=== PATIENT | female | born 2000 | race Caucasian/White ===

== ENCOUNTER 2021-05-09 19:22 | Emergency (ER) | payer OTHER, SELFPAY ==
[2021-05-09 19:24] VITALS: BP 159/112; PULSE 132; RESP 18; TEMP 37.6; O2SAT 92; BMI 48.6
--- NOTE | 2021-05-09 19:55 | EX.ED.DYSGE1 ---
HPI History of Present Illness Chief Complaint: Cold Sx Informant: patient and parent Onset/Context/Timing Onset: Days (3-4) Context: Gradual Onset Timing: Continuous Quality: cough Location: upper airway, not chest Current Severity: Moderate Maximum Severity: Moderate Worsened by: nothing Relieved by: nothing Associated Symptoms Associated Symptoms: fevers, chills, myalgias, headaches Associated Symptoms ED: cough Narrative Narrative: Patient presenting with several days of of cough, fevers, chills, myalgias, some headaches, some nausea at one point but not right now, she was seen in urgent care and had a negative Covid test, presents for continued symptoms without any change. Patient states that she felt short of breath in the mornings when my mouth was dry. She denies any chest symptoms at all, even with exertion. Her father has Covid tested positive last week, is currently admitted with Covid pneumonitis. She lives in the same house as he does. She and the family members are all unvaccinated. PFSH PFSH Medical History no medical history no medical history Home Medications NK 05/09/21 [History Last Taken Unknown] Allergy/AdvReac Type Severity Reaction Status Date / Time amoxicillin Allergy Hives Verified 05/09/21 19:23 Surgical History no surgical history no surgical history Social History Smoking Status: Never smoker ROS [facility] ED Constitutional Constitutional ED: Reports body ache(s), chills, fatigue, fever(s), headache(s) and malaise Eyes Eyes: Denies change in vision or diplopia ENT ENT ED: Denies rhinorrhea or sore throat Cardiovascular Cardiovascular: Denies chest pain or palpitations Respiratory/Chest Respiratory/Chest: Reports as per HPI and cough; Denies dyspnea or dyspnea on exertion Gastrointestinal Gastrointestinal: Reports nausea; Denies abdominal pain, diarrhea or vomiting Genitourinary Genitourinary ED: Denies dysuria or hematuria Musculoskeletal Musculoskeletal: Denies back pain or neck pain Integumentary Denies abscess or rash Neurologic Neurologic: Reports headache(s); Denies paresthesias or weakness Psychiatric Psychiatric: Denies anxiety or suicidal thoughts EXAM Physical Exam Const Vital Signs: 05/09/21 19:24 05/09/21 20:05 Temperature 99.6 F H Temperature Source Temporal Pulse Rate 132 H Respiratory Rate 18 Respiratory Effort Normal Respiratory Pattern Normal Blood Pressure 159/112 H Blood Pressure Mean 127 Pulse Ox 92 Positive well nourished and well developed Constitutional Narrative: Well-appearing, no distress General Appearance ED: well developed and NAD HEENT Reports moist mucous membranes normocephalic and atraumatic Throat: posterior oropharynx normal Eyes PERRL and EOMs intact bilaterally Neck full ROM, no lymphadenopathy, supple and no meningeal signs Resp normal respiratory effort and clear to auscultation bilaterally Cardio regular rate, regular rhythm and no murmurs Cardio Narrative: mild tachycardia GI non-tender and non-distended Auscultation: normoactive bowel sounds Palpation: soft Back/Spine no CVA tenderness General Back: other FROM Extremity normal to inspection and no calf tenderness General Extremety ED: Negative for edema, pulses abnormal or tenderness General Extremity: Negative for edema or pulses abnormal Neuro oriented x3, CN's II-XII intact bilaterally and no sensory deficits noted Sensorium / Orientation: awake and alert Motor Exam: strength 5/5 throughout Skin no rashes or lesions noted and no wounds MDM MDM MDM Narrative Medical decision making narrative: Rapid Covid obtained here is positive which is consistent with the patient's syndrome. Her influenza is negative. Her oxygen saturations are good and she is stable for discharge home, she meets criteria for monoclonal antibody infusion therapy since she is oxygenating well, within 10 days of symptoms, and has a BMI of 49. We discussed reasons to return and given appropriate discharge instructions. Discharge Plan Triage Chief Complaint: Cold Sx ED Provider: Conner Mckinney Dx/Rx/DC Orders Clinical Impression: Acute COVID-19 Instructions: Coronavirus Disease 2019 (COVID-19): Caring for Yourself or Others, ED - COVID Monoclonal AB Infusion ... Prescriptions: No Action NK RF: 0 Primary Care Provider: Adrian Garay Referrals: Adrian Garay MD [Primary Care Provider] - As Needed Activity Restrictions/Additional Instructions: Try to get a home portable pulse oximeter and closely watch your oxygen levels periodically. If you stay below 90% for more than a minute or so, and/or you are feeling like your breathing is getting worse, return to the emergency department for further evaluation. You are a candidate for monoclonal antibody infusion therapy, see the attached instructions for more information. They will call you concerning when they want you to come to the clinic to get the infusion which is a one-time dose to help protect you from getting more ill and becoming hospitalized with life-threatening illness due to Covid given your risk for worsening. Disposition Disposition: Home, Self Care
[2021-05-09] MEDS: Acetaminophen 500 MG Tablet 1000 MG PO (20:05)
[2021-05-09 21:59] VITALS: PULSE 88; RESP 20; O2SAT 98
== END 2021-05-09 21:59 | disposition home or self-care (01) ==
PROVIDERS: Emergency Provider Emergency Medicine; PCP Pediatrics
DX: U07.1 COVID-19 (principal); E66.9 Obesity, unspecified; Z68.42 Body mass index [BMI] 45.0-49.9, adult
CPT/HCPCS: 87426; 87804; 99283

== ENCOUNTER 2024-08-29 23:40 | Emergency (ER) | payer MEDICAID, SELFPAY ==
[2024-08-29 23:41] VITALS: BP 183/104; PULSE 119; RESP 25; TEMP 36.1; O2SAT 100; BMI 53.4
[2024-08-29 23:46] VITALS: O2SAT 99
[2024-08-29 23:50] VITALS: BP 156/95; PULSE 96; RESP 22; O2SAT 98
--- NOTE | 2024-08-30 00:05 | RAD_ITS ---
PROCEDURE: CHEST PA AND LATERAL 08/30/2024 REASON FOR EXAM: PAIN TECHNIQUE: Frontal and lateral views of the chest. COMPARISON: None. FINDINGS: Mild elevation of the left hemidiaphragm secondary to gaseous dilatation of the splenic flexure of the colon. Minimal left basilar atelectatic pulmonary changes. The lungs are expanded. There is no demonstrated parenchymal abnormality. There is no demonstrated pleural abnormality. Normal heart and pericardium. Normal mediastinum and gildardo. Normal visualized pulmonary arteries. Normal visualized aortic arch and descending thoracic aorta. Normal visualized thoracic spine. Normal visualized ribs, clavicles, and shoulders. There is no demonstrated abnormality of the visualized soft tissue structures of the upper abdomen. RAD/Chest PA and Lateral IMPRESSION: No radiographic evidence of an acute abnormality. Reading [facility] [id number]
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
[2024-08-30 01:13] VITALS: BP 150/55; PULSE 95; RESP 20; TEMP 36.7; O2SAT 98
== END 2024-08-30 01:16 | disposition home or self-care (01) ==
PROVIDERS: Emergency Provider Emergency Medicine; Visit Provider Emergency Medicine
DX: S30.1XXA Contusion of abdominal wall, initial encounter (principal); E66.01 Morbid (severe) obesity due to excess calories; V43.52XA Car driver injured in collision with other type car in traffic accident, initial encounter; W22.10XA Striking against or struck by unspecified automobile airbag, initial encounter; Y92.410 Unspecified street and highway as the place of occurrence of the external cause; S20.20XA Contusion of thorax, unspecified, initial encounter
CPT/HCPCS: 71046; 99282

== ENCOUNTER 2024-08-31 01:46 | Emergency (ER) | payer MEDICAID, SELFPAY ==
[2024-08-31 01:47] VITALS: BP 156/90; PULSE 96; RESP 23; TEMP 36.6; O2SAT 94; BMI 54.0
[2024-08-31 02:46] VITALS: BP 137/94; PULSE 106; RESP 21; O2SAT 98
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
[2024-08-31 03:14] VITALS: BP 133/72; PULSE 102; RESP 22; TEMP 36.7; O2SAT 97
== END 2024-08-31 03:28 | disposition home or self-care (01) ==
PROVIDERS: Emergency Provider Emergency Medicine; Visit Provider Emergency Medicine
DX: R42 Dizziness and giddiness (principal); R51.9 Headache, unspecified; V43.52XA Car driver injured in collision with other type car in traffic accident, initial encounter; W22.10XA Striking against or struck by unspecified automobile airbag, initial encounter; Y92.410 Unspecified street and highway as the place of occurrence of the external cause
CPT/HCPCS: 99282

== ENCOUNTER 2024-09-03 07:27 | Emergency (ER) | payer MEDICAID, SELFPAY ==
[2024-09-03 07:28] VITALS: BP 160/106; PULSE 112; RESP 16; TEMP 36.6; O2SAT 97; BMI 44.8
--- NOTE | 2024-09-03 07:41 | CT_ITS ---
EXAM: BRAIN/HEAD WITHOUT CONTRAST CLINICAL HISTORY: 24 y/o F with HEADACHE, TROUBLE CONCENTRATING, PARESTHESIAS LEFT. COMPARISON: None. TECHNIQUE: Routine CT imaging of the head without IV contrast. Additional multiplanar reformats were obtained. Dose reduction techniques were used including intermediate exposure control (AEC),iterative reconstruction technique, and/or mA and/or KV dose adjustments based on patient's size. FINDINGS: No acute intracranial hemorrhage or herniation. The gilbert-white matter interfaces are maintained. No ventriculomegaly. The basal cisterns are patent. Opacification of the bilateral maxillary sinuses, [id number]. The mastoid air cells are well-aerated. The orbits are unremarkable. No acute calvarial fracture or scalp hematoma. CT/Brain/Head without Contrast IMPRESSION: No acute intracranial finding. Reading Location: [id number]
--- NOTE | 2024-09-03 07:56 | EDS_ITS ---
HPI History of Present Illness Chief Complaint: Head Injury Detail of Chief Complaint: Headaches, forgetfulness, trouble with sleep Informant: patient and parent Onset/Context/Timing Onset: Days Context: Sudden Onset Timing: Intermittent Quality: Detailed in HPI narrative Location: Not applicable Current Severity: Gone Maximum Severity: Moderate Worsened by: Uncertain Relieved by: Not applicable Associated Symptoms Associated Symptoms: HPI narrative Narrative Narrative: Patient is a 24-year-old female. She was seen on August [address] Mijares and Dr[address] Kevin Moscoso saw her on August 31. Chest x-ray was obtained on initial visit. The x-ray interpreted by radiologist and ER physician and no abnormality was noted. There was discussion why a CT of the head was not obtained. Patient has intermittent bilateral headache. Patient's had numbness predominantly left side. Patient reports trouble getting sleep, staying asleep and getting up in the morning. Normal. She has had problems with recalling things and forgetfulness. She also reports dropping things. Mother clarified that she drops things when she falls asleep which is abnormal for her. She has never been assessed for obstructive sleep apnea. (Patient's BMI is 44.8). Mother states she does snore loudly. Patient Nuys double vision, blurred vision loss of vision. She denies ringing in ears or decreased hearing. Denies trouble with speech or swallowing. Patient denies cardiac or respiratory symptoms. Patient denies GI symptoms. Patient has no urologic symptoms. She states she does have problems with balance. Prior similar symptoms: Yes Recent Illness/Hospitalization: Yes PFSH PFSH Home Medications ?Medication ?Instructions ?Recorded ?Last Taken ?Type methocarbamol 500 mg tablet 1,000 mg (2 x 500 mg) PO 4 X/DAY 08/30/24 Unknown Rx PRN Muscle pain/spasm #56 tabs Allergy/AdvReac Type Severity Reaction Status Date / Time amoxicillin Allergy Hives Verified 09/03/24 07:28 Social History (Updated 09/03/24 @ 07:[address] Raul Buenrostro MD) household members: family Smoking Status: Never smoker ROS ROS ED Constitutional Constitutional ED: Denies chills, fever(s), subjective or sweats Eyes Eyes: Denies blurry vision, change in vision or diplopia ENT ENT ED: Denies ear pain, rhinorrhea or sore throat Cardiovascular Cardiovascular: Denies chest pain or palpitations Gastrointestinal Gastrointestinal: Denies abdominal pain, nausea or vomiting Genitourinary Genitourinary ED: Denies dysuria, hematuria or urinary frequency Musculoskeletal Musculoskeletal: Denies arthralgias or myalgias Neurologic Neurologic: Reports paresthesias LUE and LLE Psychiatric Psychiatric: Denies anxiety or depression Hematologic/Lymphatic Hematologic/Lymphatic: Reports systems reviewed and no addt'l complaints, except as documented EXAM Physical Exam Const Vital Signs: 09/03/24 07:28 09/03/24 07:41 Temperature 97.8 F Temperature Source Temporal Pulse Rate 112 H Respiratory Rate 16 Respiratory Pattern Tachypnea Blood Pressure 160/106 H Blood Pressure Mean 124 Pulse Ox 97 Oxygen Delivery Method Room Air Positive well nourished and well developed Constitutional Narrative: BMI is 44.8. Patient's blood pressure is elevated 160/106. She is presently on no medication. She is on no herbal supplements. General Appearance ED: well developed and pallor HEENT Reports moist mucous membranes HEENT Narrative: Head is atraumatic normocephalic. Ears normal. Nares patent. Posterior pharynx is normal. No clinical signs of basilar skull fracture. Eyes PERRL and EOMs intact bilaterally Eyes Narrative: There is no nystagmus. General Eye ED: Negative for pale conjunctiva or scleral icterus Neck no lymphadenopathy, supple and no JVD Neck Narrative: There is no midline posterior neck discomfort. She has full active range of motion. Resp normal respiratory effort and clear to auscultation bilaterally Cardio regular rate, regular rhythm, S1 normal heart sound, S2 normal heart sound and no murmurs Back/Spine Back/Spine Narrative: Inspection of the back is normal. Extremity normal to inspection General Extremety ED: Negative for edema or tenderness General Extremity: Negative for edema Neuro oriented x3, CN's II-XII intact bilaterally and no sensory deficits noted Neuro Narrative: Gait was observed and normal. Able to walk on heels and toes. Tandem gait was normal. Romberg with eyes open and closed was negative. There is no clonus or Babinski sign noted. Sensorium / Orientation: alert Motor Exam: strength 5/5 throughout Psych mental status grossly normal Skin no rashes or lesions noted, no wounds and skin turgor normal General Skin Exam: pallor; Negative for jaundice MDM MDM MDM Narrative Medical decision making narrative: Since this is patient's third visit and symptoms have gotten worse and now reporting numbness on left side will obtain CT of the head to rule out intracranial bleed and specifically subdural hematoma or parenchymal contusion. If this is negative suspect that she has a concussion and she also in all likelihood has undiagnosed obstructive sleep apnea. History & Record Review Additional record(s) reviewed:: Prior ED visit and Prior labs (Chest x-ray was obtained and reviewed.) Radiography Diagnostic Testing: Clinical Impression(s) from Imaging Studies Brain CT 09/03/24 07:41 IMPRESSION: No acute intracranial finding. Reading Location: [facility] CT of the head reveals retention mucous cyst left maxillary sinus. There is no evidence of bleed. Awaiting formal read by radiologist Treatment and Re-Evaluation :: Patient and mother were informed of results. She will need to follow-up with Since she does not have a doctor Dr. Osman. She will need follow-up for elevated blood pressure and outpatient study for sleep apnea. Discharge Plan Triage Chief Complaint: Head Injury ED Provider: Raul Buenrostro Dx/Rx/DC Orders Clinical Impression: Post-concussion syndrome, Hypersomnolence, Elevated blood-pressure reading without diagnosis of hypertension, Sinus tachycardia Instructions: Coping with Concussion, ED Hypertension, To Be Confirmed, ED Sleep Apnea, Obstructive Prescriptions: No Action methocarbamol 500 mg tablet 1,000 mg PO 4X/DAY PRN (Reason: Muscle pain/spasm) Qty: 56 0RF Primary Care Provider: Care Physician,No Primary Referrals: Michelle Rodriguez MD [Med Staff - Grade School Teacher] - 1 Week Care Physician,No Primary [Primary Care Provider] - Activity Restrictions/Additional Instructions: Call Dr. Rodriguez's office for follow-up for blood pressure, outpatient study for sleep apnea and postconcussive syndrome Print Language: Palestinian Disposition Disposition: Home, Self Care
== END 2024-09-03 08:39 | disposition home or self-care (01) ==
PROVIDERS: Emergency Provider Emergency Medicine; Visit Provider Emergency Medicine
DX: R51.9 Headache, unspecified (principal); F07.81 Postconcussional syndrome; R00.0 Tachycardia, unspecified; R03.0 Elevated blood-pressure reading, without diagnosis of hypertension; G47.10 Hypersomnia, unspecified
CPT/HCPCS: 70450; 99282

== ENCOUNTER 2024-09-06 00:27 | Emergency (ER) | payer MEDICAID, SELFPAY ==
[2024-09-06 00:29] VITALS: BP 150/90; PULSE 98; RESP 26; TEMP 36.6; O2SAT 95; BMI 54.1
--- NOTE | 2024-09-06 01:13 | EDS_ITS ---
HPI History of Present Illness Chief Complaint: General Illness Informant: patient and parent Narrative Narrative: Patient is a 24-year-old female with no significant past medical history. She states over the last few days she is having bouts of apnea while she sleeps and then has noted excessive daytime sleepiness. She states she was seen in the ER recently for this and was told this is consistent with sleep apnea and she needs to have a sleep study in order to confirm this. Patient states that she does not have a family doctor and at this time cannot get into see 1 for an order for potential sleep study. Mother reports that she does witness the patient snort/snore herself awake and then fall back asleep which is consistent with sleep apnea. She states that as she cannot get into see a family doctor for the further testing she returns today to discuss if there is any type of treatment possible for her symptoms PFSH PFS Home Medications ?Medication ?Instructions ?Recorded ?Last Taken ?Type methocarbamol 500 mg tablet 1,000 mg (2 x 500 mg) PO 4 X/DAY 08/30/24 Unknown Rx PRN Muscle pain/spasm #56 tabs azelastine 137 mcg (0.1 %) nasal 2 spray intranasal BI D #30 mL 09/06/24 Unknown Rx spray Allergy/AdvReac Type Severity Reaction Status Date / Time amoxicillin Allergy Hives Verified 09/06/24 00:28 Social History (Updated 09/03/24 @ 07:[address] Raul Buenrostro MD) household members: family Smoking Status: Never smoker ROS ROS ED Constitutional Constitutional ED: Denies chills or fever(s) Eyes Eyes: Denies change in vision ENT ENT ED: Denies sore throat Cardiovascular Cardiovascular: Denies chest pain Respiratory/Chest Respiratory/Chest: Denies cough or dyspnea Gastrointestinal Gastrointestinal: Denies abdominal pain, diarrhea, nausea or vomiting Genitourinary Genitourinary ED: Denies dysuria Musculoskeletal Musculoskeletal: Denies myalgias or neck pain Integumentary Denies rash Neurologic Neurologic: Denies headache(s) Hematologic/Lymphatic Hematologic/Lymphatic: Denies easy bleeding or easy bruising Allergic/Immunologic Allergic/Immunologic ED: Denies mouth swelling or tongue swelling EXAM Physical Exam Const Vital Signs: 09/06/24 00:29 09/06/24 00:32 09/06/24 01:15 Temperature 97.9 F 98.0 F Temperature Source Oral Pulse Rate 98 78 Respiratory Rate 26 H 24 H Respiratory Effort Short of Breath Labored Respiratory Pattern Tachypnea Blood Pressure 150/90 H 138/75 H Blood Pressure Mean 110 96 Pulse Ox 95 100 Oxygen Delivery Method Room Air Positive well nourished, well developed and obese General Appearance ED: well developed; Negative for pallor Nutritional Appearance: obese HEENT Reports moist mucous membranes HEENT Narrative: No tongue or lip swelling no oral lesions no airway edema or compromise Patient does have +2 tonsillar hypertrophy bilaterally without erythema exudates trismus change in voice or difficulty with secretions Eyes PERRL and EOMs intact bilaterally General Eye ED: Negative for scleral icterus Neck supple and no JVD Neck Narrative: No subcutaneous emphysema noted Resp normal respiratory effort and clear to auscultation bilaterally Cardio regular rate and regular rhythm Extremity normal to inspection Neuro oriented x3, CN's II-XII intact bilaterally and no sensory deficits noted Sensorium / Orientation: alert Motor Exam: strength 5/5 throughout Psych mental status grossly normal Skin no rashes or lesions noted General Skin Exam: Negative for jaundice or pallor MDM MDM MDM Narrative Medical decision making narrative: Patient arrived to the ER hypertensive otherwise with stable vitals. History and exam is consistent with sleep apnea. This is most likely from pickwickian syndrome based on her morbid obesity and enlarged neck with tonsillar hypertrophy. There are no findings in the posterior pharynx to suggest peritonsillar abscess or strep throat. She is not hypoxic or in respiratory distress in the ER and therefore do not feel there is need for imaging studies. Patient and family were informed that I cannot perform a sleep study in the ER or provide an order form for it. They also were informed that I cannot provide a CPAP machine which would ultimately be the treatment of choice if the sleep study confirms YADI. At this time they will return home and continue to seek evaluation from an outpatient doctor and I have also informed him to seek treatment/evaluation by ENT based on her tonsil hypertrophy as a potential cause of her YADI. At this time hours she is not have signs of infection or respiratory distress she is not hypoxic or requiring supplemental oxygen and therefore is safe for discharge History & Record Review Discussion w/independent historian: Patient and Family Discharge Plan Triage Chief Complaint: General Illness ED Provider: Walter Mijares Dx/Rx/DC Orders Clinical Impression: Sleep apnea, Hypertrophy of tonsils, Morbid obesity Instructions: ED Sleep Apnea, Obstructive Prescriptions: New azelastine 137 mcg (0.1 %) spray,non-aerosol 2 spray intranasal BID Qty: 30 0RF Rx Instructions: administer into each nostril No Action methocarbamol 500 mg tablet 1,000 mg PO 4X/DAY PRN (Reason: Muscle pain/spasm) Qty: 56 0RF Primary Care Provider: Care Physician,No Primary Referrals: Bassem Kamara MD [Med Staff - Courtesy Staff] - (Tonsil hypertrophy with obstructive sleep apnea) Care Physician,No Primary [Primary Care Provider] - Activity Restrictions/Additional Instructions: Your history and exam is consistent with obstructive sleep apnea most likely due to enlarged tonsils. Please continue to try and obtain your sleep study to confirm sleep apnea and follow-up with ENT to discuss potential need for tonsillectomy. Sleep in a more upright position to help prevent symptoms and try salt water gargles throughout the day to potentially shrink the size of your enlarged tonsils. Return to the ER should you have any further concerns Print Language: Paraguayan Disposition Disposition: Home, Self Care Discharge Date/Time: 09/06/24 01:19
[2024-09-06 01:15] VITALS: BP 138/75; PULSE 78; RESP 24; TEMP 36.7; O2SAT 100
== END 2024-09-06 01:19 | disposition home or self-care (01) ==
PROVIDERS: Emergency Provider Emergency Medicine; Visit Provider Emergency Medicine
DX: G47.30 Sleep apnea, unspecified (principal); E66.01 Morbid (severe) obesity due to excess calories; J35.1 Hypertrophy of tonsils
CPT/HCPCS: 99282

== ENCOUNTER → 2024-09-12 | Outpatient (CLI) | payer MEDICAID, SELFPAY ==
[2024-09-12 16:50] LABS: Absolute Lymphocyte Count 4.39 X10^3/uL (0.83-4.51); Absolute Neutrophil Count 5.7 X10^3/uL (2.0-7.7); Basophil# 0.07 X10^3/uL; Basophil% 0.6 % (0-1); Eosinophils% 0.9 % (0-5); Hematocrit 41.7 % (37-47); Lymphocyte # 4.39 X10^3/ul (0.83-4.51); Mean Corp Hgb Conc 33.6 g/dL (32-36); Mean Corpuscular Volume 92.3 fL (81-99); Mean Platelet Vol. 10.9 fl (6.2-12.0); Monocyte# 1.03 X10^3/uL; Monocyte% 9.1 % (0-10); NRBC Flagged by Analyzer 0 % (0-5); Neutrophil # 5.66 X10^3/uL (2.7-7.7); Neutrophil % 50.2 % (47-70); POSITIVE MORPHOLOGY YES; Platelet Count 345 K/mm3 (150-450); RBC Distribution Width CV 12.4 % (11.6-14.6); RBC Distribution Width SD 41.6 fl (35.1-43.9); Red Blood Count 4.52 M/mm3 (4.2-5.4); White Blood Count 11.3 K/mm3 (4.4-11.0)
[2024-09-12 17:09] LABS: Differential Indicated SCAN CRITERIA MET
[2024-09-12 18:02] LABS: ALB/GLOB Ratio 1.1 RATIO (0.9-2.4); AST(SGOT) 24 U/L (<=31); Alanine Aminotransfer ALT/SGPT 27 U/L (<=34); Alkaline Phosphatase 86 U/L (35-104); Anion Gap 12 (5-15); BUN 12 mg/dL (4-19); BUN/Creat Ratio 20.2 RATIO (10-20); Calcium,Total 9.6 mg/dL (7.6-11.0); Carbon Dioxide 24.7 mmol/L (21.0-32.0); Chloride 101 mmol/L (98-108); Creatinine, Serum 0.59 mg/dL (0.70-1.20); EST Glomerular Filtration Rate 130 (>60); Globulin 3.8 g/dL (2.2-4.2); Glucose 91 mg/dL (70-99); Potassium 4.2 mmol/L (3.3-5.1); Protein, Total 7.8 g/dL (5.9-8.4); Sodium Level 137 mmol/L (133-145); Total Bilirubin 0.25 mg/dL (0.00-1.30)
[2024-09-12 18:16] LABS: Differential Comment SCANNED
[2024-09-12 18:17] LABS: Reactive Lymphocyte RARE
[2024-09-12 18:19] LABS: Cholesterol 149 mg/dL (<=190); High Density Lipoprotein 39 mg/dL; Low Density Lipoprotein Calc. 85 mg/dL; Triglycerides 127 mg/dL; Very Low Density Lipoprotein 25 mg/dL (5-40); cholesterol:hdl ratio screen 3.81
[2024-09-12 18:21] LABS: Vitamin B12 381 pg/mL (180-914); Vitamin D,25 Hydroxy 7.1 ng/mL (30-100)
== END | disposition home or self-care (01) ==
LOC: VSLAB 14:59
DX: R53.83 Other fatigue (principal); E55.9 Vitamin D deficiency, unspecified; Z13.220 Encounter for screening for lipoid disorders
CPT/HCPCS: 36415; 80053; 80061; 82306; 82607; 84443; 85025

== ENCOUNTER 2024-09-20 17:06 | Emergency (ER) | payer MEDICAID, SELFPAY ==
[2024-09-20 17:06] VITALS: BP 154/110; BP 161/105; PULSE 111; PULSE 114; RESP 16; RESP 20; TEMP 36.8; O2SAT 97; O2SAT 99; BMI 54.1
--- NOTE | 2024-09-20 17:30 | EDS_ITS ---
HPI History of Present Illness Chief Complaint: Shortness of Breath Detail of Chief Complaint: Shortness of breath Informant: patient and parent Narrative Narrative: Patient presents shortness of breath started 3 weeks ago. She [facility] and also scheduled to see ENT in 2 days. Intermittently has had a sore throat. She does have a cough. Complains of some exertional symptoms. [facility] thought she might have sleep apnea and they ordered outpatient sleep study. She cannot have her sleep study till October. She denies fever. She denies chest pain. She denies recent travel or surgery. PFSH PFS Medical History no medical history Home Medications ?Medication ?Instructions ?Recorded ?Last Taken ?Type azelastine 137 mcg (0.1 %) nasal 2 spray intranasal BI D #30 mL 09/06/24 Unknown Rx spray azithromycin 200 mg/5 mL oral 250 mg (6.25 mL) PO MICHAEL Y 4 days 09/20/24 Unknown Rx suspension (Zithromax) #25 mL ergocalciferol (vitamin D2) 1,250 1,250 mcg PO QWEEK 0 09/20/24 Unknown History mcg (50,000 unit) capsule Allergy/AdvReac Type Severity Reaction Status Date / Time amoxicillin Allergy Hives Verified 09/20/24 17:07 Social History (Updated 09/03/24 @ 07:[address] Raul Buenrostro MD) household members: family Smoking Status: Never smoker ROS ROS ED Review of Systems ROS Unobtainable: other Constitutional Constitutional ED: Reports lethargy; Denies chills, fever(s), sweats or weight loss Eyes Eyes: Denies blurry vision, change in vision or diplopia ENT ENT ED: Reports sore throat; Denies rhinorrhea Cardiovascular Cardiovascular: Denies chest pain, orthopnea or racing heartbeat Respiratory/Chest Respiratory/Chest: Reports cough, dyspnea and dyspnea on exertion; Denies orthopnea or sputum Gastrointestinal Gastrointestinal: Denies abdominal pain, diarrhea, nausea or vomiting Genitourinary Genitourinary ED: Denies dysuria, hematuria or urinary frequency Musculoskeletal Musculoskeletal: Denies arthralgias, back pain, myalgias or neck pain Integumentary Denies abscess, Abrasions or rash Neurologic Neurologic: Denies headache(s) or weakness Psychiatric Psychiatric: Denies anxiety, depression or suicidal thoughts Endocrine Endocrinology: Denies polydipsia, polyphagia or polyuria Hematologic/Lymphatic Hematologic/Lymphatic: Denies easy bleeding, easy bruising or lymphadenopathy Allergic/Immunologic Allergic/Immunologic ED: Denies mouth swelling, tongue swelling or urticaria EXAM Physical Exam Const Vital Signs: 09/20/24 17:06 09/20/24 17:06 09/20/24 17:13 Temperature 98.2 F Temperature Source Temporal Pulse Rate 111 H 114 H Respiratory Rate 16 20 H Respiratory Effort Normal Non-Labored Respiratory Depth Normal Respiratory Pattern Tachypnea Blood Pressure 154/110 H 161/105 H Blood Pressure Mean 124 123 Pulse Ox 99 97 Oxygen Delivery Method Room Air Room Air 09/20/24 19:06 09/20/24 21:00 Temperature Temperature Source Pulse Rate 101 H 106 H Respiratory Rate 18 18 Respiratory Effort Respiratory Depth Respiratory Pattern Blood Pressure 145/90 H 134/87 H Blood Pressure Mean 108 102 Pulse Ox 99 97 Oxygen Delivery Method Room Air Room Air Positive well nourished and well developed General Appearance ED: well developed and NAD HEENT Reports TM's clear and moist mucous membranes HEENT Narrative: Tonsils +2 without exudates or erythema. Uvula midline without trismus. No significant anterior adenopathy. normocephalic and atraumatic; Negative for trauma or tenderness Tympanic Membrane ED: Yes TM's clear Eyes PERRL and EOMs intact bilaterally General Eye ED: Negative for pale conjunctiva or scleral icterus Neck no lymphadenopathy, supple and no JVD General: Negative for tenderness Chest Wall inspection of chest normal and palpation of chest normal Chest: Negative for tenderness Resp normal respiratory effort and clear to auscultation bilaterally Effort and Inspection: Negative for respiratory distress or pain with movement Auscultation: Negative for rhonchi, wheezes or diminished lung sounds Cardio regular rate, regular rhythm, S1 normal heart sound, S2 normal heart sound and no murmurs Peripheral Pulses: pulses 2+ throughout GI normal to inspection, nondistended, normoactive bowel sounds, soft to palpation, non-tender, non-distended and no masses GI Narrative: Morbidly obese, abdomen nontender on exam. Back/Spine no CVA tenderness and no thoracic nor lumbar tenderness Extremity normal to inspection General Extremety ED: Negative for edema General Extremity: Negative for edema Neuro oriented x3, CN's II-XII intact bilaterally, no sensory deficits noted and gait normal Sensorium / Orientation: awake, alert, oriented to person, oriented to place and oriented to time Motor Exam: strength 5/5 throughout and strength abnormal Psych mental status grossly normal Skin no rashes or lesions noted and no wounds MDM MDM MDM Narrative Medical decision making narrative: Patient presents with difficulty breathing and complaining of sore throat. Clinically she looks well. Tonsils are +3 and uvula midline without trismus. No exudates noted. CBC with differential white count 13.1 with hemoglobin 13.8 plate count 281. Chemistries unremarkable. D-dimer was less than 0.27. TSH normal at 1.8. I did do a CT scan of the neck with IV contrast which read by radiology as heterogenous enhancement and enlargement of the palatine and adenoidal tonsils with findings concerning for acute tonsillitis. There was associated narrowing of the oropharyngeal airway and multiple bilateral jugulodigastric reactive lymph nodes. I will obtain a throat culture. Will start patient on Zithromax as she is pen allergic. She has an appointment to see ENT in 2 days and she is advised to keep that. Advised to return if difficulty swallowing or increased difficulty breathing or condition should worsen in any way. Lab Data Attestation: I reviewed the patient's lab results. Labs: Laboratory Results - last 24 hr 09/20/24 17:40 WBC 13.1 H RBC 4.50 Hgb 13.8 Hct 41.0 MCV 91.1 MCH 30.7 MCHC 33.7 RDW Std Deviation 41.1 RDW Coeff of Beltran 12.5 Plt Count 281 MPV 11.0 Immature Gran % (Auto) 0.400 Neut % (Auto) 64.6 Lymph % (Auto) 26.3 Hanson % (Auto) 7.6 Eos % (Auto) 0.6 Baso % (Auto) 0.5 Absolute Neuts (auto) 8.5 H Absolute Lymphs (auto) 3.44 Nucleated RBC % 0 D-Dimer Quant (PE/DVT) < 0.27 L Sodium 139 Potassium 3.8 Chloride 101 Carbon Dioxide 27.0 Anion Gap 11 BUN 13 Creatinine 0.70 Estim Creat Clear Calc 171.43 Est GFR (MDRD) Non-Af 125 BUN/Creatinine Ratio 18.5 Glucose 131 H Calcium 9.5 TSH 1.830 Radiography Diagnostic Testing: Clinical Impression(s) from Imaging Studies Soft Tissue Neck CT 09/20/24 20:50 IMPRESSION: Heterogeneous enhancement and enlargement of the palatine and adenoidal tonsils with findings concerning for acute tonsillitis. Associated narrowing of the oropharyngeal airway. Multiple bilateral jugulodigastric reactive lymph nodes. [facility] Triage Chief Complaint: Shortness of Breath ED Provider: Jeniffer Hernandez Dx/Rx/DC Orders Clinical Impression: Acute tonsillitis Instructions: Tonsillitis in Adults Prescriptions: New azithromycin [Zithromax] 200 mg/5 mL suspension for reconstitution 250 mg PO DAILY 4 Days Qty: 25 0RF Rx Instructions: 250 mg orally; No Action ergocalciferol (vitamin D2) 1,250 mcg (50,000 unit) capsule 1,250 mcg PO QWEEK azelastine 137 mcg (0.1 %) spray,non-aerosol 2 spray intranasal BID Qty: 30 0RF Rx Instructions: administer into each nostril Primary Care Provider: Pietro Ramos Referrals: Pietro Ramos, [employer] [Primary Care Provider] - Activity Restrictions/Additional Instructions: Keep your appointment with ENT in 2 days. Print Language: German Disposition Disposition: Home, Self Care
[2024-09-20 17:58] LABS: Absolute Lymphocyte Count 3.44 X10^3/uL (0.83-4.51); Absolute Neutrophil Count 8.5 X10^3/uL (2.0-7.7); Basophil# 0.06 X10^3/uL; Basophil% 0.5 % (0-1); Eosinophil# 0.08 X10^3/uL; Eosinophils% 0.6 % (0-5); Hemoglobin 13.8 g/dL (12.0-15.0); Lymphocyte # 3.44 X10^3/ul (0.83-4.51); Lymphocyte % 26.3 % (19-41); Mean Corp Hgb Conc 33.7 g/dL (32-36); Mean Corpuscular Hgb 30.7 pg (27.0-32.0); Mean Corpuscular Volume 91.1 fL (81-99); Monocyte% 7.6 % (0-10); NRBC Flagged by Analyzer 0 % (0-5); Neutrophil # 8.45 X10^3/uL (2.7-7.7); Neutrophil % 64.6 % (47-70); Platelet Count 281 K/mm3 (150-450); RBC Distribution Width CV 12.5 % (11.6-14.6); RBC Distribution Width SD 41.1 fl (35.1-43.9); White Blood Count 13.1 K/mm3 (4.4-11.0)
[2024-09-20 18:13] LABS: Anion Gap 11 (5-15); BUN 13 mg/dL (4-19); BUN/Creat Ratio 18.5 RATIO (10-20); Calcium,Total 9.5 mg/dL (7.6-11.0); Chloride 101 mmol/L (98-108); EST Glomerular Filtration Rate 125 (>60); Estimated Creatinine Clearance 171.43 ml/min (50-250); Glucose 131 mg/dL (70-99); Potassium 3.8 mmol/L (3.3-5.1); Sodium Level 139 mmol/L (133-145)
[2024-09-20 19:06] VITALS: BP 145/90; PULSE 101; RESP 18; O2SAT 99
[2024-09-20 19:55] LABS: D-Dimer Quantitative (DVT/PE) < 0.27 FEU/ug/m (0.27-0.49)
--- NOTE | 2024-09-20 20:50 | CT_ITS ---
PROCEDURE: SOFT TISSUE NECK WITH CONTRAST 09/20/2024 REASON FOR EXAM: THROAT PAIN, DIFFICULTY BREATHING TECHNIQUE: CT of the soft tissues of the neck from the orbits to the upper mediastinum with intravenous contrast. CONTRAST: Omnipaque 350 VOLUME: 100 mL Not Provided Gauge IV One or more dose reduction techniques were used (e.g., Automated exposure control, adjustment of the mA and/or kV according to patient size, use of iterative reconstruction technique). COMPARISON: None FINDINGS: Lymph nodes: Bilateral prominent-mildly enlarged level I and level II reactive lymph nodes.. Small nonspecific lymph nodes are scattered throughout the neck. Aerodigestive tract: Heterogenous enlargement and enhancement of the adenoidal and palatine tonsils (series 601 image [id number]), with phlegmonous change and multiple tonsilloliths, predominantly in the left palatine tonsil. No evidence of a tonsillar or peritonsillar abscess. There is associated mild narrowing of the oropharyngeal airway. Findings compatible with acute tonsillitis.. The nasal cavities, remainder of the naso-oropharynx, pharyngeal mucosal space, laryngeal structures and infraglottic trachea are within normal limits. Major salivary glands: Within normal limits. Thyroid gland: Within normal limits. Carotid space: Patent bilateral extracranial carotid and jugular systems. Intracranial contents: Imaged portions within normal limits. Paranasal sinuses, middle ears, mastoids: Mild paranasal sinus mucosal thickening.. Orbits: Within normal limits. Bones: No suspicious osseous lesions in the imaged calvarium, skull base and spine. Normal cervicothoracic alignment. No significant spondylotic changes. Temporomandibular joints are maintained. Lungs: Imaged lungs are clear. CT/Soft Tissue Neck WITH Contrast IMPRESSION: Heterogeneous enhancement and enlargement of the palatine and adenoidal tonsils with findings concerning for acute tonsillitis. Associated narrowing of the oropharyngeal airway. Multiple bilateral jugulodigastric reactive lymph nodes. Reading Location: [facility]
[2024-09-20 21:00] VITALS: BP 134/87; PULSE 106; RESP 18; O2SAT 97
[2024-09-20 22:46] VITALS: BP 143/96; PULSE 105; RESP 18; TEMP 36.8; O2SAT 96
[2024-09-20] MEDS: Azithromycin 200MG/5ML 500 MG PO (22:49)
== END 2024-09-20 22:51 | disposition home or self-care (01) ==
PROVIDERS: Emergency Provider Emergency Medicine; Visit Provider Emergency Medicine
DX: J35.3 Hypertrophy of tonsils with hypertrophy of adenoids (principal); R06.02 Shortness of breath
CPT/HCPCS: 70491; 80048; 84443; 85025; 85379; 87070; 87077; 87631; 99283; Q9967; A4216

== ENCOUNTER 2024-09-25 18:12 | Emergency (ER) | payer MEDICAID, SELFPAY ==
[2024-09-25 18:13] VITALS: BP 170/99; PULSE 102; RESP 19; TEMP 36.7; O2SAT 95; BMI 54.3
[2024-09-25 20:12] VITALS: BP 119/72; PULSE 88; O2SAT 97
--- NOTE | 2024-09-25 21:31 | EKG12_ITS ---
Test Reason : DYSRHYTHMIA Blood Pressure : */* mmHG Vent. Rate : 79 BPM Atrial Rate : 79 BPM P-R Int : 158 ms QRS Dur : 82 ms QT Int : 348 ms P-R-T Axes : 52 69 22 degrees QTcB Int : 399 ms Normal sinus rhythm with sinus arrhythmia Normal ECG Confirmed by Eduardo Perkins ([id number]), loan expeditor LAYO MARTINEZ ([id number]) on 09/26/2024 9:17:39 AM Referred By: Confirmed By: Eduardo Perkins
[2024-09-25 22:00] VITALS: BP 132/79; PULSE 90; RESP 18; O2SAT 97
--- NOTE | 2024-09-25 22:17 | EDS_ITS ---
HPI History of Present Illness Chief Complaint: General Illness Informant: patient and parent Narrative Narrative: Patient presents with several complaints. She has been having chest discomfort has been constant since yesterday that started right after swallowing some brought worst. She denies any dyspnea. Chest discomfort is substernal nonradiating, no palpitations, near-syncope or syncope or other systemic symptoms with this as far as the timing of the chest discomfort starting. However she has been having for the past month or so headaches, trouble staying asleep and therefore fatigue throughout the day every day. Seems like sometimes it is hard to move air through her throat. She saw otolaryngology for this, they said her tonsils are prominent but she was not a candidate for tonsillectomy at this point. She is scheduled to see her PCP tomorrow and hopefully be scheduled for a sleep study. She states she snores a lot. Also off balance with walking at times. PFS PFS Medical History no medical history Home Medications ?Medication ?Instructions ?Recorded ?Last Taken ?Type azelastine 137 mcg (0.1 %) nasal 2 spray intranasal BI D #30 mL 09/06/24 Unknown Rx spray azithromycin 200 mg/5 mL oral 250 mg (6.25 mL) PO MICHAEL Y 4 days 09/20/24 Unknown Rx suspension (Zithromax) #25 mL ergocalciferol (vitamin D2) 1,250 1,250 mcg PO QWEEK 0 09/20/24 Unknown History mcg (50,000 unit) capsule Allergy/AdvReac Type Severity Reaction Status Date / Time amoxicillin Allergy Hives Verified 09/25/24 18:16 Family History no significant family his Surgical History no surgical history Social History household members: family Smoking Status: Never smoker ROS ROS ED Constitutional Constitutional ED: Reports as per HPI, fatigue and snoring; Denies chills or fever(s) Eyes Eyes: Denies change in vision or diplopia ENT ENT ED: Denies rhinorrhea or sore throat Cardiovascular Cardiovascular: Reports chest pain; Denies palpitations Respiratory/Chest Respiratory/Chest: Denies cough or dyspnea Gastrointestinal Gastrointestinal: Denies abdominal pain, diarrhea, nausea or vomiting Genitourinary Genitourinary ED: Denies dysuria or hematuria Musculoskeletal Musculoskeletal: Denies back pain or neck pain Integumentary Denies abscess or rash Neurologic Neurologic: Reports headache(s); Denies paresthesias or weakness Psychiatric Psychiatric: Denies suicidal thoughts EXAM Physical Exam Const Vital Signs: 09/25/24 18:13 09/25/24 20:12 09/25/24 22:00 Temperature 98.1 F Temperature Source Oral Pulse Rate 102 H 88 90 Respiratory Rate 19 H 18 Blood Pressure 170/99 H 119/72 132/79 H Blood Pressure Mean 122 87 96 Pulse Ox 95 97 97 Oxygen Delivery Method Room Air Room Air Positive well nourished, well developed and obese General Appearance ED: well developed and NAD Nutritional Appearance: obese HEENT Reports moist mucous membranes HEENT Narrative: Mallampati 3. Tonsils symmetric. No stridor. No trismus. No tongue elevation. normocephalic and atraumatic Eyes PERRL and EOMs intact bilaterally Neck full ROM, no lymphadenopathy and supple Resp normal respiratory effort and clear to auscultation bilaterally Cardio regular rate, regular rhythm and no murmurs GI non-tender and non-distended Auscultation: normoactive bowel sounds Palpation: soft Back/Spine no CVA tenderness General Back: other FROM Extremity normal to inspection General Extremety ED: Negative for edema, pulses abnormal or tenderness General Extremity: Negative for edema or pulses abnormal Neuro oriented x3, CN's II-XII intact bilaterally and no sensory deficits noted Sensorium / Orientation: awake and alert Motor Exam: strength 5/5 throughout Psych mental status grossly normal Skin no rashes or lesions noted and no wounds MDM MDM MDM Narrative Medical decision making narrative: Patient states she was still having chest discomfort. Her EKG is normal, I offered her Mylanta but but by the time the nurses offered it to her she states the chest discomfort was gone so she declined it and on my reevaluation she is no longer having any chest discomfort. I do not think she needs any other further emergent workup. I reviewed her last ER visit her 2. She had a CT of the head verifying that there was nothing emergent/acute going on there. As I discussed with her, the symptoms could all be postconcussive, they could also be related to the fact that she has a significant sleep disturbance which is probably due to sleep apnea, she may or may not have a soft palate issue, but she already saw otolaryngology, she may be a candidate for CPAP, advised to follow-up with her doctor as scheduled tomorrow, they are comfortable with that plan. Of note, she was hypertensive when she was here at another visit, 170/99 in triage here but on my exam, she now is 119 systolic and on discharge 132/79. Rhythm Strip Rhythm Strip: Sinus Rhythm Rate: 78 Ectopy: None EKG Initial EKG: Attestation: I personally reviewed and interpreted this EKG as follows: Interpretation: Sinus Rhythm and No Acute Injury Pattern Comments: Nml axis & intervals; nml EKG Discharge Plan Triage Chief Complaint: General Illness ED Provider: Conner Mckinney Dx/Rx/DC Orders Clinical Impression: Fatigue, Disturbed sleep rhythm, Non-cardiac chest pain Instructions: ED Chest Pain, Noncardiac Prescriptions: No Action ergocalciferol (vitamin D2) 1,250 mcg (50,000 unit) capsule 1,250 mcg PO QWEEK azithromycin [Zithromax] 200 mg/5 mL suspension for reconstitution 250 mg PO DAILY 4 Days Qty: 25 0RF Rx Instructions: 250 mg orally; azelastine 137 mcg (0.1 %) spray,non-aerosol 2 spray intranasal BID Qty: 30 0RF Rx Instructions: administer into each nostril Primary Care Provider: Pietro Ramos Referrals: Pietro Ramos, FI[employer] MERCHANDISER-C [Primary Care Provider] - Keep Valerie appointment Print Language: Kazakh Disposition Disposition: Home, Self Care
== END 2024-09-25 22:21 | disposition home or self-care (01) ==
PROVIDERS: Emergency Provider Emergency Medicine; Visit Provider Emergency Medicine
DX: R07.89 Other chest pain (principal); R53.83 Other fatigue; G47.9 Sleep disorder, unspecified
CPT/HCPCS: 93005; 99282

== ENCOUNTER → 2024-10-03 | Outpatient (CLI) | payer MEDICAID, SELFPAY | END | disposition home or self-care (01) | LOC: SL 09:54 | DX: G47.10 Hypersomnia, unspecified (principal) | CPT/HCPCS: 95806 ==

== ENCOUNTER → 2024-11-06 | Outpatient (CLI) | payer MEDICAID, SELFPAY | END | disposition home or self-care (01) | LOC: SL 19:51 | PROVIDERS: Referring Provider Internal Medicine Sleep Medicine; Visit Provider Internal Medicine Sleep Medicine | DX: G47.10 Hypersomnia, unspecified (principal) | CPT/HCPCS: 95811 ==

== ENCOUNTER → 2024-11-29 | Outpatient (CLI) | payer MEDICAID, SELFPAY | END | disposition home or self-care (01) | LOC: SL 11:37 | PROVIDERS: Referring Provider Internal Medicine Sleep Medicine; Visit Provider Internal Medicine Sleep Medicine | DX: Z00.00 Encounter for general adult medical examination without abnormal findings (principal) ==

== ENCOUNTER 2025-02-11 04:11 | Emergency (ER) | payer MEDICAID, SELFPAY ==
--- OUTSIDE RECORDS SUMMARY | 2024-10-11 15:58 | XMS RPT_ITS ---
Author Name Auto Generated Organization [facility] Care Team Providers Care Associate Partner Name Role Phone SAMANTHA YAN Attending Unavailable SELF, SELF Referring Unavailable AVERY HERNANDEZ Primary Care Unavailable PROBLEMS DATE TYPE CONDITION / CODE [facility] Admitting diagnosis Obstructive Sleep Apnea / 264() SAMANTHA YAN Active [facility] PROCEDURES No Procedure Records Found RESULTS ALLERGIES No Allergies Records Found ENCOUNTERS ADMIT/DISCHARGE ACCOUNT NUMBER ADMITTING ENCOUNTER CLASS LOC ATION SOURCE [facility]/11/2024 [id number] [facility] PAYERS ENCOUNTER GUARANTOR PAYER SUBSCRIBER SOURCE 10/11/2024 HILLARY ANGUIANOB: [id number] [place] [phone]: () Primary [facility]: [id number] ve Date:[id number] Name:TRINA ANGUIANOB: [id number] [address]
[2025-02-11 04:12] VITALS: BP 135/94; PULSE 104; RESP 22; TEMP 36.6; O2SAT 98; BMI 59.8
[2025-02-11 04:15] VITALS: BP 135/94; PULSE 96; RESP 22; TEMP 36.6; O2SAT 98
--- NOTE | 2025-02-11 05:09 | EX.ED.VIS.UR ---
HPI HPI - URI History of Present Illness Chief Complaint: Shortness of Breath Informant: patient and parent Narrative Narrative: 24-year-old female with a history of sleep apnea has been having more dyspnea than usual due to nasal congestion. She has a nonproductive cough, no fevers or chills, but she does have a sore throat. Clear rhinorrhea. This has been going on for 1-2 weeks. Presents between 3520-7068 AM because we need to fix this according to mother. Patient states she stopped using her CPAP because it was uncomfortable with all the nasal congestion, and it gave her a lot of rhinorrhea with it being all over her in the morning, less sleep, and then more drowsy during the day as a result. She denies having any chest symptoms. No sputum production when she coughs. She has a history of seasonal allergies but does not take anything for it. She also has taken no [id number] cold or flu medications for any of this. ROS ROS ED Constitutional Constitutional ED: Denies chills or fever(s) ENT ENT ED: Reports nasal congestion, rhinorrhea and sore throat; Denies ear pain Cardiovascular Cardiovascular: Denies chest pain or palpitations Respiratory/Chest Respiratory/Chest: Reports cough and dyspnea on exertion; Denies chest congestion, excessive phlegm production, hemoptysis or sputum Gastrointestinal Gastrointestinal: Denies abdominal pain, diarrhea, nausea or vomiting Genitourinary Genitourinary ED: Denies dysuria or hematuria Musculoskeletal Musculoskeletal: Denies myalgias or neck pain Integumentary Denies abscess or rash Neurologic Neurologic: Denies headache(s), paresthesias or weakness Psychiatric Psychiatric: Denies depression or suicidal thoughts Endocrine Endocrinology: Denies polydipsia or polyuria [facility] Medical History (Updated 02/11/25 @ 06:[address] Conner Mckinney MD) YADI (obstructive sleep apnea) Home Medications ?Medication ?Instructions ?Recorded ?Last Taken ?Type NK 02/11/25 Unknown History Allergy/AdvReac Type Severity Reaction Status Date / Time amoxicillin Allergy Hives Verified 02/11/25 04:12 Social History household members: family Smoking Status: Never smoker EXAM Physical Exam Const Vital Signs: 02/11/25 04:12 02/11/25 04:12 02/11/25 04:15 Temperature 97.8 F 97.8 F Temperature Source Oral Oral Pulse Rate 104 H 96 Respiratory Rate 22 H 22 H Respiratory Effort Short of Breath Respiratory Depth Shallow Respiratory Pattern Tachypnea Blood Pressure 135/94 H 135/94 H Blood Pressure Mean 107 107 Pulse Ox 98 98 Oxygen Delivery Method Room Air Room Air Room Air Positive well nourished, well developed and obese Constitutional Narrative: No respiratory distress. Audible nasal congestion. General Appearance ED: well developed and NAD Nutritional Appearance: obese HEENT Reports moist mucous membranes HEENT Narrative: No purulent nasal discharge. normocephalic and atraumatic Face and Sinus: Negative for sinus tenderness Throat: Negative for posterior oropharynx abnormal Eyes PERRL and EOMs intact bilaterally Neck no lymphadenopathy, supple and no meningeal signs Resp normal respiratory effort and clear to auscultation bilaterally Cardio no murmurs Rate: regular rate Rhythm: regular rhythm GI non-tender and non-distended Auscultation: normoactive bowel sounds Palpation: soft Extremity normal to inspection and full ROM Neuro oriented x3, CN's II-XII intact bilaterally and no sensory deficits noted Sensorium / Orientation: alert Motor Exam: strength 5/5 throughout Psych mental status grossly normal Skin Lesions: no lesions Rashes: no rashes MDM MDM MDM Narrative Medical decision making narrative: Patient is not hypoxic and has clear lungs and no chest symptoms. Therefore I do not think she needs a chest x-ray as this is not likely to be pneumonia. Her symptoms and exam are all consistent with this being upper airway-related congestion and rhinorrhea causing her symptoms. She is in agreement when I suggest that. I think doing a COVID/influenza/RSV swab is reasonable, and given the possibility of some swelling in her posterior pharynx, I think reasonable to give her a dose of Decadron especially since she is not a diabetic. Originally when we discussed this she was amenable to it, but then she changed her mind and decided to refuse the Decadron. The swab is negative. She is wondering if this could be allergies, certainly it could be or a viral infection. I discussed the logic behind the steroids and she understands but declines, and states she would rather use [id number] Zyrtec and NyQuil or equivalent and use her CPAP as able. Discharge Plan Triage Chief Complaint: Shortness of Breath ED Provider: Faye,Conner Dx/Rx/DC Orders Clinical Impression: Nasal congestion with rhinorrhea, Difficulty with CPAP use Instructions: ED Allergic Rhinitis, ED URI, Viral, No Abx (Adult) Prescriptions: No Action NK Primary Care Provider: Anne Marie Munoz Referrals: Anne Marie Munoz, HARDWARE ASSEMBLER-C [Primary Care Provider, [facility]] - 3-5 Days if not improving Activity Restrictions/Additional Instructions: Try using NyQuil or [id number] equivalent cold/flu medication at night before bed to help with the runny nose, and consider using Zyrtec or Aster or Claritin as these will be more likely to help if your nasal congestion is due to allergy. Print Language: Maltese Disposition Disposition: Home, Self Care
[2025-02-11 06:32] VITALS: BP 151/106; PULSE 82; RESP 20; TEMP 36.6; O2SAT 94
== END 2025-02-11 06:33 | disposition home or self-care (01) ==
PROVIDERS: Emergency Provider Emergency Medicine; PCP Nurse Practitioner Family; Visit Provider Emergency Medicine
DX: R09.81 Nasal congestion (principal); R06.02 Shortness of breath; Z99.89 Dependence on other enabling machines and devices; G47.33 Obstructive sleep apnea (adult) (pediatric); J34.89 Other specified disorders of nose and nasal sinuses
CPT/HCPCS: 87631; 99282

== ENCOUNTER → 2025-02-14 | Outpatient (CLI) | payer MEDICAID, SELFPAY | END | disposition home or self-care (01) | PROVIDERS: PCP Nurse Practitioner Family; Referring Provider Nurse Practitioner Family; Visit Provider Nurse Practitioner Family | DX: R05.9 Cough, unspecified (principal) | CPT/HCPCS: 71046 ==

== ENCOUNTER 2025-02-23 15:31 | Emergency (ER) | payer MEDICAID, SELFPAY ==
[2025-02-23 15:31] VITALS: TEMP 36.5
[2025-02-23 15:45] VITALS: BMI 58.8
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
[2025-02-23] MEDS: 0.9% Normal Saline (1000mL) 1,000 ML 999 ML IV (16:12)
[2025-02-23 16:31] VITALS: BP 116/74; PULSE 80; RESP 14; TEMP 36.6; O2SAT 99
[2025-02-23 16:45] LABS: AST(SGOT) 20 U/L (<=31); Alanine Aminotransfer ALT/SGPT 19 U/L (<=34); Albumin, Serum 3.8 g/dL (3.5-5.0); Alkaline Phosphatase 82 U/L (35-104); Anion Gap 10 (5-15); BUN 10 mg/dL (4-19); BUN/Creat Ratio 15.3 RATIO (10-20); Bilirubin, Direct 0.14 mg/dL (0.00-0.30); Calcium,Total 9.6 mg/dL (7.6-11.0); Carbon Dioxide 29.0 mmol/L (21.0-32.0); Chloride 100 mmol/L (98-108); Estimated Creatinine Clearance 187.39 ml/min (50-250); Globulin 4.0 g/dL (2.2-4.2); Glucose 144 mg/dL (70-99); Hematocrit 39.7 % (37-47); Hemoglobin 13.2 g/dL (12.0-15.0); Immature Granulocytes Count 0.030 X10^3/uL (0.0-0.0); Mean Corp Hgb Conc 33.2 g/dL (32-36); Mean Corpuscular Volume 93.6 fL (81-99); Mean Platelet Vol. 12.9 fl (6.2-12.0); NRBC Flagged by Analyzer 0 % (0-5); Platelet Count 260 K/mm3 (150-450); Potassium 4.0 mmol/L (3.3-5.1); RBC Distribution Width CV 12.3 % (11.6-14.6); RBC Distribution Width SD 42.4 fl (35.1-43.9); Red Blood Count 4.24 M/mm3 (4.2-5.4); White Blood Count 9.9 K/mm3 (4.4-11.0)
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
[2025-02-23 17:02] LABS: Prothrombin Time (Protime)PT. 14.0 SECONDS (11.7-14.9)
[2025-02-23 17:03] LABS: Partial Thromboplast Time 28.8 Seconds (24.1-36.2)
[2025-02-23 17:10] LABS: Internal QC Validated? YES +Cl - CLEAR BKGD; Pregnancy, Serum, hCG Quali. NEGATIVE Negative
[2025-02-23 17:11] LABS: Record Kit Lot#, Serum Preg. 980607
[2025-02-23 17:24] VITALS: BP 118/72; PULSE 82; RESP 12; O2SAT 99
[2025-02-23 17:26] LABS: Mucous, Urine 0 SEEN /hpf (<or=2+)
[2025-02-23 18:00] VITALS: BP 121/77; PULSE 79; RESP 14; O2SAT 99
[2025-02-23 18:00] LABS: Color, Urine Yellow (Yellow); Glucose, Dipstick Normal (Normal); Ketone-Dipstick Negative (Negative); Leukocyte Esterase-Dipstick Negative /ul (Negative); Nitrite-Dipstick Negative (Negative); Occult Blood-Urine 250 /ul (Negative); Protein-Dipstick 30 mg/dl (Negative); Specific Gravity, Urine 1.010 (1.002-1.030); Urine Bilirubin Dipstick Negative (Negative)
[2025-02-23 18:20] VITALS: BP 121/77; PULSE 79; RESP 14; TEMP 36.8; O2SAT 99
[2025-02-23 20:46] LABS: Red Blood Cells-Urine 10-25 SEEN /hpf (0-5); Squamous Epithelial Cells - UA 0-5 SEEN /hpf (5-10)
== END 2025-02-23 18:30 | disposition home or self-care (01) ==
PROVIDERS: Emergency Provider Emergency Medicine; PCP Nurse Practitioner Family; Visit Provider Emergency Medicine
DX: G47.33 Obstructive sleep apnea (adult) (pediatric) (principal); V48.5XXA Car driver injured in noncollision transport accident in traffic accident, initial encounter; Y92.410 Unspecified street and highway as the place of occurrence of the external cause
CPT/HCPCS: 70450; 71260; 72125; 74177; 80048; 80076; 81001; 84703; 85025; 85610; 85730; 93005; 96360; 96361; 99285; Q9967; A4216

== ENCOUNTER → 2025-03-28 | Outpatient (CLI) | payer MEDICAID, SELFPAY ==
--- OUTSIDE RECORDS SUMMARY | 2025-03-28 06:51 | XMS RPT_ITS | CCD ---
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 decided to refuse the Decadron. The swab is negative. She (more content not included)... Normal [facility] Influenza virus A and B and SARS-CoV-2 (COVID-19) and Respiratory syncytial virus RNAOrdered By: Conner Mckinney on 02-11-2025 SARS-CoV-2 (COVID-19) RNA ROYCE+probe Ql (Unsp spec) [facility] M100.678on 02-11-2025 M100.678 SARS-CoV-2 (COVID 19 ) Negative INFLUENZA A Negative INFLUENZA B Negative RSV PCR Negative Normal [facility] Comment on above: Performed By: #### M 100.678 #### [facility] [address] [place], [place], [id number] Culture, Throaton 09-27-2024 CUT No beta-hemolytic streptococcus isolated. Bacteria Throat Cult Bacteria Throat Cult Bacteria Throat Cult Staphylococcus aureus Amount Growth 2+ Staphylococcus aureus: REACTION cefOXitin Susc Islt NEG Doxycycline Islt CHRISTOPHER <=0.5 S Clindamycin Islt CHRISTOPHER 0.25 S Clindamycin.induced Susc Islt NEG Erythromycin Islt CHRISTOPHER <=0.25 S Gentamicin Islt CHRISTOPHER <=0.5 S Linezolid Islt CHRISTOPHER 2 S Moxifloxacin Islt CHRISTOPHER <=0.25 S Oxacillin Susc Islt 0.5 S Tetracycline Islt CHRISTOPHER <=1 S TMP SMX Islt CHRISTOPHER <=10 S Vancomycin Islt CHRISTOPHER 1 S Normal [facility] Comment on above: Performed By: #### M 100.1000 ####[facility] [id number] [place], [place], [address] 12 Lead EKGon 09-25-2024 12 Lead EKG [facility] Services [address] [place] [address] 12 Lead EKG 09/25/24 2150 MR#: [id number] Acct: [id number] Name: HILLARY VOSS Rep #: [id number] : 2000 24 From: Eduardo Perkins MD Attending Dr: Status: DEP ER Ordering Dr: Conner Mckinney MD Date: 09/25/24 Location: ED Sex: F C Admitted: Test Reason : DYSRHYTHMIA Blood Pressure : */* mmHG Vent. Rate : 79 BPM Atrial Rate : 79 BPM P-R Int : 158 ms QRS Dur : 82 ms QT Int : 348 ms P-R-T Axes : 52 69 22 degrees QTcB Int : 399 ms Normal sinus rhythm with sinus arrhythmia Normal ECG Confirmed by Eduardo Perkins ([id number]), editor newspaper LAYO MARTINEZ ([id number]) on 09/26/2024 9:17:39 AM Referred By: Confirmed By: Eduardo Perkins 09/26/24 0917 Date Eduardo Perkins MD CC: Dr. Conner Mckinney MD; Pietro [employer] Rachel Signed Normal [facility] Emergency Department Summary on 09-25-2024 Emergency Department Summary [facility] Medical Records Department [address] [place] [address] Emergency Department Summary 09/25/24 MR#: [id number] Acct: [id number] Name: HILLARY VOSS Rep #: [id number] : 2000 24 From: Conner Mckinney MD PCP: Pietro Ramos [employer] Status:DEP ER Location: ED HPI History of Present Illness Chief Complaint: General Illness Informant: patient and parent Narrative Narrative: Patient presents with several complaints. She has been having chest discomfort has been constant since yesterday that started right after swallowing some brought worst. She denies any dyspnea. Chest discomfort is substernal nonradiating, no palpitations, near-syncope or syncope or other systemic symptoms with this as far as the timing of the chest discomfort starting. However she has been having for the past month or so headaches, trouble staying asleep and therefore fatigue throughout the day every day. Seems like sometimes it is hard to move air through her throat. She saw otolaryngology for this, they said her tonsils are prominent but she was not a candidate for tonsillectomy at this point. She is scheduled to see her PCP tomorrow and hopefully be scheduled for a sleep study. She states she snores a lot. Also off balance with walking at times. [facility] Medical History no medical history Home Medications ???Medication ???Instructions ???Recorded ???Last Taken ???Type azelastine 137 mcg (0.1 %) nasal 2 spray intranasal BID #30 mL 08/16 08/08 Unknown Rx spray azithromycin 200 mg/5 mL oral 250 mg (6.25 mL) PO DAILY 4 days 0 09/20/24 Unknown Rx suspension (Zithromax) #25 mL ergocalciferol (vitamin D2) 1,250 1,250 mcg PO QWEEK 09/20/24 Unkno wn History mcg (50,000 unit) capsule Allergy/AdvReac Type Severity Reaction Status Date / Time amoxicillin Allergy Hives Verified 09/25/24 18:16 Family History no significant family his Surgical History no surgical history Social History household members: family Smoking Status: Never smoker ROS ROS ED Constitutional Constitutional ED: Reports as per HPI, fatigue and snoring; Denies chills or fever(s) Eyes Eyes: Denies change in vision or diplopia ENT ENT ED: Denies rhinorrhea or sore throat Cardiovascular Cardiovascular: Reports chest pain; Denies palpitations Respiratory/Chest Respiratory/Chest: Denies cough or dyspnea Gastrointestinal Gastrointestinal: Denies abdominal pain, diarrhea, nausea or vomiting Genitourinary Genitourinary ED: Denies dysuria or hematuria Musculoskeletal Musculoskeletal: Denies back pain or neck pain Integumentary Denies abscess or rash Neurologic Neurologic: Reports headache(s); Denies paresthesias or weakness Psychiatric Psychiatric: Denies suicidal thoughts EXAM Physical Exam Const Vital Signs: 09/25/24 18:13 09/25/24 20:12 09/25/24 22:00 Temperature 98.1 F Temperature Source Oral Pulse Rate 102 H 88 90 Respiratory Rate 19 H 18 Blood Pressure 170/99 H 119/72 132/79 H Blood Pressure Mean 122 87 96 Pulse Ox 95 97 97 Oxygen Delivery Method Room Air Room Air Positive well nourished, well developed and obese General Appearance ED: well developed and NAD Nutritional Appearance: obese HEENT Reports moist mucous membranes HEENT Narrative: Mallampati 3. Tonsils symmetric. No stridor. No trismus. No tongue elevation. normocephalic and atraumatic Eyes PERRL and EOMs intact bilaterally Neck full ROM, no lymphadenopathy and supple Resp normal respiratory effort and clear to auscultation bilaterally Cardio regular rate, regular rhythm and no murmurs GI non-tender and non-distended Auscultation: normoactive bowel sounds Palpation: soft Back/Spine no CVA tenderness General Back: other FROM Extremity normal to inspection General Extremety ED: Negative for edema, pulses abnormal or tenderness General Extremity: Negative for edema or pulses abnormal Neuro oriented x3, CN's II-XII intact bilaterally and no sensory deficits noted Sensorium / Orientation: awake and alert Motor Exam: strength 5/5 throughout Psych mental status grossly normal Skin no rashes or lesions noted and no wounds MDM MDM MDM Narrative Medical decision making narrative: Patient states she was still having chest discomfort. Her EKG is normal, I offered her Mylanta but but by the time the nurses offered it to her she states the chest discomfort was gone so she declined it and on my reevaluation she is no longer having any chest discomfort. I do not think she needs any other further emergent workup. I reviewed her last ER visit her 2. She had a CT of the head verifying that there was nothing emergent/acute going on there. As I discussed with her, th (more content not included)... Normal [facility] Absolute lymphocyte countOrd ered By: Jeniffer Hernandez on 09-20-2024 Lymphocytes Auto (Unsp spec) [#/Vol] 3.44 10*3/uL 0.83-4.51 [facility] Absolute neutrophil countOrd ered By: Jeniffer Hernandez on 09-20-2024 Neutrophils (Bld) [#/Vol] 8.5 10*3/uL High 2.0-7.7 [facility] Anion gap in Serum or Plasma Ordered By: Jeniffer Hernandez on 09-20-2024 Anion gap [Moles/Vol] 11 mmol/L 5-15 [facility] Automated lymphocyte count a s percentage of total leukocytesOrdered By: Jeniffer Hernandez on 09-20-2024 Lymphocytes/100 WBC Auto (Unsp spec) 26.3 % 19-41 [facility] BUN/creatinine ratioOrdered By: Jeniffer Hernandez on 09-20-2024 Urea nitrogen/Creatinine [Mass ratio] 18.5 mg/mg 10- [facility] Basic Metabolic Profile (BMP )on 09-20-2024 BUN/CRE 18.5 RATIO Normal - [facility] Comment on above: Performed By: #### L 500.2500, L100.0100, L300.8000, L501.9520 #### [facility] [address] [place], [address] Calcium [Mass/Vol] 9.5 mg/dL Normal 7.6-11.[address] [facility] Comment on above: Performed By: #### L 500.2500, L100.0100, L300.8000, L501.9520 #### [facility] [address] [place], [address] Chloride [Moles/Vol] 101 mmol/L Normal 98-108 [facility] Comment on above: Performed By: #### L 500.2500, L100.0100, L300.8000, L501.9520 #### [facility] [address] [place], [address] CO2 [Moles/Vol] 27.0 mmol/L Normal 21.0-32.0 [facility] Comment on above: Performed By: #### L 500.2500, L100.0100, L300.8000, L501.9520 #### [facility] [address] [place], [address] Creatinine [Mass/Vol] 0.70 mg/dL Normal 0.70-1.20 [facility] Comment on above: Performed By: #### L 500.2500, L100.0100, L300.8000, L501.9520 #### [facility] [address] [place], [address] ECRCL 171.43 ml/min Normal 50-250 [facility] Comment on above: Performed By: #### L 500.2500, L100.0100, L300.8000, L501.9520 #### [facility] [address] [place], [address] GAP 11 Normal 5-15 [facility] Comment on above: Performed By: #### L 500.2500, L100.0100, L300.8000, L501.9520 #### [facility] [address] [place], [address] GFR/1.73 sq M.predicted among non-blacks MDRD (S/P/Bld) [Vol rate/Area] 125 mL/min/{1.73_m2} Normal >60 [facility] Comment on above: Result Comment: mL/m in/1.73m2 CKD-EPI Creatinine Equation (2020) Performed By: #### L 500.2500, L100.0100, L300.8000, L501.9520 #### [facility] [address] [place], [address] Glucose [Mass/Vol] 131 mg/dL High 70-[address] [facility] Comment on above: Performed By: #### L 500.2500, L100.0100, L300.8000, L501.9520 #### [facility] [address] [place], [address] Potassium [Moles/Vol] 3.8 mmol/L Normal 3.3-5.1 [facility] Comment on above: Performed By: #### L 500.2500, L100.0100, L300.8000, L501.9520 #### [facility] [address] [place], [address] Sodium [Moles/Vol] 139 mmol/L Normal 133-[address] [facility] Comment on above: Performed By: #### L 500.2500, L100.0100, L300.8000, L501.9520 #### [facility] [address] [place], [address] Urea nitrogen [Mass/Vol] 13 mg/dL Normal 4-19 [facility] Comment on above: Performed By: #### L 500.2500, L100.0100, L300.8000, L501.9520 #### [facility] [address] [place], [address] Basophil percentageOrdered B y: Remus Ungur on 09-20-2024 Basophils/100 WBC (Bld) 0.5 % 0-1 [facility] CBC W/Diff, Automatedon -2024 Absolute Lymph 3.44 X10 3/uL Normal 0.83-4.51 [facility] Comment on above: Performed By: #### L 500.2500, L100.0100, L300.8000, L501.9520 #### [facility] [address] [place], [address] Absolute Neut 8.5 X10 3/uL High 2.0-7.7 [facility] Comment on above: Performed By: #### L 500.2500, L100.0100, L300.8000, L501.9520 #### [facility] [address] [place], [address] Basophils/100 WBC (Bld) 0.5 % Normal 0-1 [facility] Comment on above: Performed By: #### L 500.2500, L100.0100, L300.8000, L501.9520 #### [facility] [address] [place], [address] Eosinophils/100 WBC (Bld) 0.6 % Normal 0-5 [facility] Comment on above: Performed By: #### L 500.2500, L100.0100, L300.8000, L501.9520 #### [facility] [address] [place], [address] Erythrocyte distribution width (RBC) [Ratio] 12.5 % Normal 11.6-14.6 [facility] Comment on above: Performed By: #### L 500.2500, L100.0100, L300.8000, L501.9520 #### [facility] [address] [place], [address] Hematocrit (Bld) [Volume fraction] 41.0 % Normal 37-47 [facility] Comment on above: Performed By: #### L 500.2500, L100.0100, L300.8000, L501.9520 #### [facility] [address] [place], [address] Hemoglobin (Bld) [Mass/Vol] 13.8 g/dL Normal 12.0-15.0 [facility] Comment on above: Performed By: #### L 500.2500, L100.0100, L300.8000, L501.9520 #### [facility] [address] [place], [address] IG% 0.400 Normal 0.0-0.9 [facility] Comment on above: Result Comment: IG% - Immature Granulocytes (promyelocytes, myelocytes and metamyelocytes) > 1% indicates that a LEFT SHIFT is Present. Performed By: #### L 500.2500, L100.0100, L300.8000, L501.9520 #### [facility] [address] [place], [address] Lymphocytes/100 WBC (Bld) 26.3 % Normal 19-41 [facility] Comment on above: Performed By: #### L 500.2500, L100.0100, L300.8000, L501.9520 #### [facility] [address] [place], [address] MCH (RBC) [Entitic mass] 30.7 pg Normal 27.0-32.0 [facility] Comment on above: Performed By: #### L 500.2500, L100.0100, L300.8000, L501.9520 #### [facility] [address] [place], [address] MCHC (RBC) [Mass/Vol] 33.7 g/dL Normal 32-36 [facility] Comment on above: Performed By: #### L 500.2500, L100.0100, L300.8000, L501.9520 #### [facility] [address] [place], [address] MCV (RBC) [Entitic vol] 91.1 fL Normal 81-99 [facility] Comment on above: Performed By: #### L 500.2500, L100.0100, L300.8000, L501.9520 #### [facility] [address] [place], [address] Monocytes/100 WBC (Bld) 7.6 % Normal 0-10 [facility] Comment on above: Performed By: #### L 500.2500, L100.0100, L300.8000, L501.9520 #### [facility] [address] [place], [address] Neutrophils/100 WBC (Bld) 64.6 % Normal 47-70 [facility] Comment on above: Performed By: #### L 500.2500, L100.0100, L300.8000, L501.9520 #### [facility] [address] [place], [address] Nucleated RBC (Bld) [#/Vol] 0 10*3/uL Normal 0-5 [facility] Comment on above: Performed By: #### L 500.2500, L100.0100, L300.8000, L501.9520 #### [facility] [address] [place], [address] Platelet mean volume (Bld) [Entitic vol] 11.0 fL Normal 6.2-12.0 [facility] Comment on above: Performed By: #### L 500.2500, L100.0100, L300.8000, L501.9520 #### [facility] [address] [place], [address] Platelets (Bld) [#/Vol] 281 10*3/uL Normal 150-450 [facility] Comment on above: Performed By: #### L 500.2500, L100.0100, L300.8000, L501.9520 #### [facility] [address] [place], [address] RBC (Bld) [#/Vol] 4.50 10*6/uL Normal 4.2-5.4 [facility] Comment on above: Performed By: #### L 500.2500, L100.0100, L300.8000, L501.9520 #### [facility] [address] [place], [address] RDW SD 41.1 fl Normal 35.1-43.9 [facility] Comment on above: Performed By: #### L 500.2500, L100.0100, L300.8000, L501.9520 #### [facility] [address] [place], [address] WBC (Bld) [#/Vol] 13.1 10*3/uL High 4.4-11.0 [facility] Comment on above: Performed By: #### L 500.2500, L100.0100, L300.8000, L501.9520 #### [facility] [address] [place], [address] Carbon dioxide, total [Moles /volume] in Central venous bloodOrdered By: Jeniffer Hernandez on 09-20-2024 CO2 [Moles/Vol] 27.0 mmol/L 21.0-32.0 [facility] Chloride assayOrdered By: Jahaira Hernandez on 09-20-2024 Chloride [Moles/Vol] 101 mmol/L 98-108 [facility] D-Dimer Quantitative (DVT/PE )on 09-20-2024 D-DIMER QUANT < 0.27 Low 0.27-0.49 [facility] Comment on above: Result Comment: NORM AL D-Dimer level (<0.50) indicates no DVT or PE. Performed By: #### L 500.2500, L100.0100, L300.8000, L501.9520 ####[facility] [id number] [place], [address] Emergency Department Summary on 09-20-2024 Emergency Department Summary [facility] Medical Records Department [address] [place] [address] Emergency Department Summary 09/20/24 MR#: [id number] Acct: [id number] Name: HILLARY VOSS Rep #: [id number] : 2000 24 From: Jeniffer Hernandez DO PCP: Pietro Ramos [employer] Status:DEP ER Location: ED HPI History of Present Illness Chief Complaint: Shortness of Breath Detail of Chief Complaint: Shortness of breath Informant: patient and parent Narrative Narrative: Patient presents shortness of breath started 3 weeks ago. She [facility] and also scheduled to see ENT in 2 days. Intermittently has had a sore throat. She does have a cough. Complains of some exertional symptoms. [facility] thought she might have sleep apnea and they ordered outpatient sleep study. She cannot have her sleep study till October. She denies fever. She denies chest pain. She denies recent travel or surgery. [facility] Medical History no medical history Home Medications ???Medication ???Instructions ???Recorded ???Last Taken ???Type azelastine 137 mcg (0.1 %) nasal 2 spray intranasal BID #30 mL 08/16 08/08 Unknown Rx spray azithromycin 200 mg/5 mL oral 250 mg (6.25 mL) PO DAILY 4 days 0 09/20/24 Unknown Rx suspension (Zithromax) #25 mL ergocalciferol (vitamin D2) 1,250 1,250 mcg PO QWEEK 09/20/24 Unkno wn History mcg (50,000 unit) capsule Allergy/AdvReac Type Severity Reaction Status Date / Time amoxicillin Allergy Hives Verified 09/20/24 17:07 Social History (Updated 09/03/24 @ 07:[address] Raul Buenrostro MD) household members: family Smoking Status: Never smoker ROS ROS ED Review of Systems ROS Unobtainable: other Constitutional Constitutional ED: Reports lethargy; Denies chills, fever(s), sweats or weight loss Eyes Eyes: Denies blurry vision, change in vision or diplopia ENT ENT ED: Reports sore throat; Denies rhinorrhea Cardiovascular Cardiovascular: Denies chest pain, orthopnea or racing heartbeat Respiratory/Chest Respiratory/Chest: Reports cough, dyspnea and dyspnea on exertion; Denies orthopnea or sputum Gastrointestinal Gastrointestinal: Denies abdominal pain, diarrhea, nausea or vomiting Genitourinary Genitourinary ED: Denies dysuria, hematuria or urinary frequency Musculoskeletal Musculoskeletal: Denies arthralgias, back pain, myalgias or neck pain Integumentary Denies abscess, Abrasions or rash Neurologic Neurologic: Denies headache(s) or weakness Psychiatric Psychiatric: Denies anxiety, depression or suicidal thoughts Endocrine Endocrinology: Denies polydipsia, polyphagia or polyuria Hematologic/Lymphatic Hematologic/Lymphatic : Denies easy bleeding, easy bruising or lymphadenopathy Allergic/Immunologic Allergic/Immunologic ED: Denies mouth swelling, tongue swelling or urticaria EXAM Physical Exam Const Vital Signs: 09/20/24 17:06 09/20/24 17:06 09/20/24 17:13 Temperature 98.2 F Temperature Source Temporal Pulse Rate 111 H 114 H Respiratory Rate 16 20 H Respiratory Effort Normal Non-Labored Respiratory Depth Normal Respiratory Pattern Tachypnea Blood Pressure 154/110 H 161/105 H Blood Pressure Mean 124 123 Pulse Ox 99 97 Oxygen Delivery Method Room Air Room Air 09/20/24 19:06 09/20/24 21:00 Temperature Temperature Source Pulse Rate 101 H 106 H Respiratory Rate 18 18 Respiratory Effort Respiratory Depth Respiratory Pattern Blood Pressure 145/90 H 134/87 H Blood Pressure Mean 108 102 Pulse Ox 99 97 Oxygen Delivery Method Room Air Room Air Positive well nourished and well developed General Appearance ED: well developed and NAD HEENT Reports TM's clear and moist mucous membranes HEENT Narrative: Tonsils +2 without exudates or erythema. Uvula midline without trismus. No significant anterior adenopathy. normocephalic and atraumatic; Negative for trauma or tenderness Tympanic Membrane ED: Yes TM's clear Eyes PERRL and EOMs intact bilaterally General Eye ED: Negative for pale conjunctiva or scleral icterus Neck no lymphadenopathy, supple and no JVD General: Negative for tenderness Chest Wall inspection of chest normal and palpation of chest normal Chest: Negative for tenderness Resp normal respiratory effort and clear to auscultation bilaterally Effort and Inspection: Negative for respiratory distress or pain with movement Auscultation: Negative for rhonchi, wheezes or diminished lung sounds Cardio regular rate, regular rhythm, S1 normal heart sound, S2 normal heart sound and no murmurs Peripheral Pulses: pulses 2+ throughout GI normal to inspection, nondistended, normoactive bowel sounds, soft to palpation, non-tender, non- distended and no masses GI Narrative: Morbidly obese, abdomen nontender on exam. (more content not included)... Normal [facility] Eosinophil percentageOrdered By: Jeniffer Hernandez on 09-20-2024 Eosinophils/100 WBC (Bld) 0.6 % 0-5 [facility] Erythrocyte distribution wid th ratioOrdered By: Jeniffer Hernandez on 09-20-2024 Erythrocyte distribution width (RBC) [Ratio] 12.5 % 11.6-14.6 [facility] Erythrocyte distribution wid th standard deviationOrdered By: Jeniffer Hernandez on 09-20-2024 Erythrocyte distribution width (RBC) [Ratio] 41.1 fl 35.1-43.9 [facility] Glomerular filtration rate ( GFR) estimation/1.73 sq m using serum, plasma, or whole bOrdered By: Jeniffer Henrandez on 09-20-2024 GFR/1.73 sq M.predicted among non-blacks MDRD (S/P/Bld) [Vol rate/Area] 125 mL/min/{1.73_m2} >60 [facility] Comment on above: mL/min/1.73m2 CKD-EP I Creatinine Equation (2020) Hematocrit Auto (Bld) [Volum e fraction]Ordered By: Jeniffer Hernandez on 09-20-2024 Hematocrit (Bld) [Volume fraction] 41.0 % 37-47 [facility] Hemoglobin measurementOrdere d By: Jeniffer Hernandez on 09-20-2024 Hemoglobin (Bld) [Mass/Vol] 13.8 g/dL 12.0-15.0 [facility] Immature granulocytes/100 WB C Auto (Bld)Ordered By: Jeniffer Hernandez on 09-20-2024 Immature granulocytes/100 WBC (Bld) 0.400 % 0.0-0.9 [facility] Comment on above: IG% - Immature Granu locytes (promyelocytes, myelocytes and metamyelocytes) > 1% indicates that a LEFT SHIFT is Present. Influenza virus A and B and SARS-CoV-2 (COVID-19) and Respiratory syncytial virus RNAOrdered By: Jeniffer Hernandez on 09-20-2024 SARS-CoV-2 (COVID-19) RNA ROYCE+probe Ql (Unsp spec) [facility] M100.678on 09-20-2024 M100.678 Pending SARS-CoV-2 (COVID 19) Negative INFLUENZA A Negative INFLUENZA B Negative RSV PCR Negative Normal [facility] Comment on above: Performed By: #### M 100.678 #### [facility] Laboratory [address] [place] [address], [id number] MCV (mean corpuscular volume ) determinationOrdered By: Jeniffer Hernandez on 09-20-2024 MCV (RBC) [Entitic vol] 91.1 fL 81-99 [facility] Mean corpuscular hemoglobin (MCH) determinationOrdered By: Jeniffer Hernandez on 09-20-2024 MCH (RBC) [Entitic mass] 30.7 pg 27.0-32.0 [facility] Mean corpuscular hemoglobin concentration (MCHC) determinationOrdered By: Jeniffer Hernandez on 09-20-2024 MCHC (RBC) [Mass/Vol] 33.7 g/dL 32-36 [facility] Mean platelet volume determi nationOrdered By: Jeniffer Hernandez on 09-20-2024 Platelet mean volume (Bld) [Entitic vol] 11.0 fL 6.2-12.0 [facility] Monocyte percentageOrdered B y: Jeniffer Hernandez on 09-20-2024 Monocytes/100 WBC (Bld) 7.6 % 0-10 [facility] Neutrophil percentageOrdered By: Jeniffer Hernandez on 09-20-2024 Neutrophils/100 WBC (Bld) 64.6 % 47-70 [facility] Nucleated red blood cell per centageOrdered By: Jeniffer Hernandez on 09-20-2024 Nucleated RBC/100 WBC (Bld) [Ratio] 0 % 0-5 [facility] Platelet countOrdered By: Jahaira Hernandez on 09-20-2024 Platelets (Bld) [#/Vol] 281 10*3/uL 150-450 [facility] Potassium measurement (mass/ volume)Ordered By: Jeniffer Hernandez on 09-20-2024 Potassium (Unsp spec) [Mass/Vol] 3.8 mmol/L 3.3-5.1 [facility] RBC Auto (Bld) [#/Vol]Ordere d By: Jeniffer Hernandez on 09-20-2024 RBC (Bld) [#/Vol] 4.50 10*6/uL 4.2-5.4 [facility] Serum creatinine measurement (mass/volume)Ordered By: Jeniffer Hernandez on 09-20-2024 Creatinine [Mass/Vol] 0.70 mg/dL 0.70-1.20 [facility] Serum glucose measurement (m ass/volume)Ordered By: Jeniffer Hernandez on 09-20-2024 Glucose [Mass/Vol] 131 mg/dL High 70-[address] [facility] Serum or plasma calcium annika urement (mass/volume)Ordered By: Jeniffer Hernandez on 09-20-2024 Calcium [Mass/Vol] 9.5 mg/dL 7.6-11.[address] [facility] Serum or plasma urea nitroge n measurement (mass/volume)Ordered By: Jeniffer Hernandez on 09-20-2024 Urea nitrogen [Mass/Vol] 13 mg/dL 4-19 [facility] Sodium levelOrdered By: Maria Del Rosario Hernandez on 09-20-2024 Sodium [Moles/Vol] 139 mmol/L 133-[address] [facility] Soft Tissue Neck WITH Contra ston 09-20-2024 Soft Tissue Neck WITH Contrast [facility] Imaging Services [address] [place], [place] [id number] Soft Tissue Neck WITH Contrast MR#: [id number] Acct: [id number] Name: HILLARY VOSS Rep #: [id number] : 2000 F 24 From: Kevin virk MD PCP: Pietro Ramos [facility] [employer] [facility] Status: REG ER Study: Soft Tissue Neck WITH Contrast Date of Exam: 0 09/20/24 Exam# [id number] Ordering Dr: Jeniffer Hernandez DO PROCEDURE: SOFT TISSUE NECK WITH CONTRAST 09/20/2024 REASON FOR EXAM: THROAT PAIN, DIFFICULTY BREATHING TECHNIQUE: CT of the soft tissues of the neck from the orbits to the upper mediastinum with intravenous contrast. CONTRAST: Omnipaque 350 VOLUME: 100 mL Not Provided Gauge IV One or more dose reduction techniques were used (e.g., Automated exposure control, adjustment of the mA and/or kV according to patient size, use of iterative reconstruction technique). COMPARISON: None FINDINGS: Lymph nodes: Bilateral prominent-mildly enlarged level I and level II reactive lymph nodes.. Small nonspecific lymph nodes are scattered throughout the neck. Aerodigestive tract: Heterogenous enlargement and enhancement of the adenoidal and palatine tonsils (series 601 image [id number]), with phlegmonous change and multiple tonsilloliths, predominantly in the left palatine tonsil. No evidence of a tonsillar or peritonsillar abscess. There is associated mild narrowing of the oropharyngeal airway. Findings compatible with acute tonsillitis.. The nasal cavities, remainder of the naso-oropharynx, pharyngeal mucosal space, laryngeal structures and infraglottic trachea are within normal limits. Major salivary glands: Within normal limits. Thyroid gland: Within normal limits. Carotid space: Patent bilateral extracranial carotid and jugular systems. Intracranial contents: Imaged portions within normal limits. Paranasal sinuses, middle ears, mastoids: Mild paranasal sinus mucosal thickening.. Orbits: Within normal limits. Bones: No suspicious osseous lesions in the imaged calvarium, skull base and spine. Normal cervicothoracic alignment. No significant spondylotic changes. Temporomandibular joints are maintained. Lungs: Imaged lungs are clear. CT/Soft Tissue Neck WITH Contrast IMPRESSION: Heterogeneous enhancement and enlargement of the palatine and adenoidal tonsils with findings concerning for acute tonsillitis. Associated narrowing of the oropharyngeal airway. Multiple bilateral jugulodigastric reactive lymph nodes. Reading Location: [facility] CC: Dr. Jeniffer Hernandez, DO; Pietro [facility] [employer] [facility] Beam Car Driver: Signed Normal [facility] TSH DL <= 0.005 mIU/L QnOrde red By: Jeniffer Hernandez on 09-20-2024 TSH Qn 1.830 uIU/mL 0.300-4.200 [facility] Throat specimen bacteria marielos ntification by cultureOrdered By: Jeniffer Hernandez on 09-20-2024 Bacteria identified Cx Nom (Throat) Staphylococcus aureus Abnormal [facility] Thyroid Stim Hormone (TSH)on 09-20-2024 TSH 1.830 uIU/mL Normal 0.300-4.200 [facility] Comment on above: Performed By: #### L 500.2500, L100.0100, L300.8000, L501.9520 #### [facility] [address] [place], [address] White blood cell (WBC) count Ordered By: Jeniffer Hernandez on 09-20-2024 WBC (Bld) [#/Vol] 13.1 10*3/uL High 4.4-11.0 [facility] Absolute lymphocyte countOrd ered By: Pietro Beam on 09-12-2024 Lymphocytes Auto (Unsp spec) [#/Vol] 4.39 10*3/uL 0.83-4.51 [facility] Absolute neutrophil countOrd ered By: Zebulun Beam on 09-12-2024 Neutrophils (Bld) [#/Vol] 5.7 10*3/uL 2.0-7.7 [facility] Anion gap in Serum or Plasma Ordered By: Zebulukareem Beam on 09-12-2024 Anion gap [Moles/Vol] 12 mmol/L 5-15 [facility] Automated lymphocyte count a s percentage of total leukocytesOrdered By: Zebulun Beam on 09-12-2024 Lymphocytes/100 WBC Auto (Unsp spec) 39.0 % -41 [facility] BUN/creatinine ratioOrdered By: Zebulun Beam on 09-12-2024 Urea nitrogen/Creatinine [Mass ratio] 20.2 mg/mg High 10-20 [facility] Basophil percentageOrdered B y: Pietro Beam on 09-12-2024 Basophils/100 WBC (Bld) 0.6 % 0-1 [facility] Bilirubin, totalOrdered By: Sarahn Beam on 09-12-2024 Bilirubin [Mass/Vol] 0.25 mg/dL Normal 0.00-1.30 [facility] Comment on above: Performed By: #### L 506.1001, L500.4050, L100.0100, L500.4100, L503.0106, L501.9520 ####[facility] [address] [place], [place], [id number] Blood manual differential co mment interpretation (narrative result)Ordered By: Pietro Ramos on 09-12-2024 Manual differential comment Roland (Bld) [Interp] SCANNED [facility] CBC W/Diff, Automatedon 08-16 REACTIVE LYMPH RARE Normal [facility] Comment on above: Performed By: #### L 506.1001, L500.4050, L100.0100, L500.4100, L503.0106, L501.9520 ####[facility] [address] [place], [address] SMEAR COMMENT SCANNED Normal [facility] Comment on above: Performed By: #### L 506.1001, L500.4050, L100.0100, L500.4100, L503.0106, L501.9520 ####[facility] [address] [place], [place], [id number] Calculated very low density lipoprotein (VLDL) cholesterol measurementOrdered By: Pietro Beam on 09-12-2024 Calculated very low density lipoprotein (VLDL) cholesterol measurement 25 mg/dL 5-40 [facility] Carbon dioxide, total [Moles /volume] in Central venous bloodOrdered By: Pietro Beam on 09-12-2024 CO2 [Moles/Vol] 24.7 mmol/L Normal 21.0-32.0 [facility] Comment on above: Performed By: #### L 506.1001, L500.4050, L100.0100, L500.4100, L503.0106, L501.9520 ####[facility] [address] [place], [address] Chloride assayOrdered By: Satya Ramos on 09-12-2024 Chloride [Moles/Vol] 101 mmol/L Normal 98-108 [facility] Comment on above: Performed By: #### L 506.1001, L500.4050, L100.0100, L500.4100, L503.0106, L501.9520 ####[facility] [address] [place], [address] Comprehensive Metabolic Prof ilon 09-12-2024 ALK PHOS 86 U/L Normal 35-104 [facility] Comment on above: Performed By: #### L 506.1001, L500.4050, L100.0100, L500.4100, L503.0106, L501.9520 ####[facility] [address] [place], [address] BUN/CRE 20.2 RATIO High 10-20 [facility] Comment on above: Performed By: #### L 506.1001, L500.4050, L100.0100, L500.4100, L503.0106, L501.9520 ####[facility] [address] [place], [address] GAP 12 Normal 5-15 [facility] Comment on above: Performed By: #### L 506.1001, L500.4050, L100.0100, L500.4100, L503.0106, L501.9520 ####[facility] [address] [place], [address] Potassium [Moles/Vol] 4.2 mmol/L Normal 3.3-5.1 [facility] Comment on above: Performed By: #### L 506.1001, L500.4050, L100.0100, L500.4100, L503.0106, L501.9520 ####[facility] [address] [place], [place], [phone] T PROT 7.8 g/dL Normal 5.9-8.4 [facility] Comment on above: Performed By: #### L 506.1001, L500.4050, L100.0100, L500.4100, L503.0106, L501.9520 ####[facility] [address] [place], [address] Comprehensive Metabolic Prof ilOrdered By: Pietro Ramos on 09-12-2024 AST [Catalytic activity/Vol] 24 U/L Normal <=31 [facility] Comment on above: Performed By: #### L 506.1001, L500.4050, L100.0100, L500.4100, L503.0106, L501.9520 ####[facility] [address] [place], [place], [id number] Eosinophil percentageOrdered By: Pietro Ramos on 09-12-2024 Eosinophils/100 WBC (Bld) 0.9 % 0-5 [facility] Erythrocyte distribution wid th ratioOrdered By: Pietro Ramos on 09-12-2024 Erythrocyte distribution width (RBC) [Ratio] 12.4 % 11.6-14.6 [facility] Erythrocyte distribution wid th standard deviationOrdered By: Pietro Ramos on 09-12-2024 Erythrocyte distribution width (RBC) [Ratio] 41.6 fl 35.1-43.9 [facility] Glomerular filtration rate ( GFR) estimation/1.73 sq m using serum, plasma, or whole bOrdered By: Pietro Ramos on 09-12-2024 GFR/1.73 sq M.predicted among non-blacks MDRD (S/P/Bld) [Vol rate/Area] 130 mL/min/{1.73_m2} Normal >60 [facility] Comment on above: mL/min/1.73m2 CKD-EP I Creatinine Equation (2020) Result Comment: mL/m in/1.73m2 CKD-EPI Creatinine Equation (2020) Performed By: #### L 506.1001, L500.4050, L100.0100, L500.4100, L503.0106, L501.9520 ####[facility] [address] [place], [place], [phone] Hematocrit Auto (Bld) [Volum e fraction]Ordered By: Nichellelun Beam on 09-12-2024 Hematocrit (Bld) [Volume fraction] 41.7 % 37-47 [facility] Hemoglobin measurementOrdere d By: Satyabulun Beam on 09-12-2024 Hemoglobin (Bld) [Mass/Vol] 14.0 g/dL 12.0-15.0 [facility] Immature granulocytes/100 WB C Auto (Bld)Ordered By: Satyabulun Beam on 09-12-2024 Immature granulocytes/100 WBC (Bld) 0.200 % 0.0-0.9 [facility] Comment on above: IG% - Immature Granu locytes (promyelocytes, myelocytes and metamyelocytes) > 1% indicates that a LEFT SHIFT is Present. LDL calc ser/plasOrdered By: Pietro Ramos on 09-12-2024 Cholesterol in LDL [Mass/Vol] 85 mg/dL Normal [facility] Comment on above: Vnktrynjkx=166-042 m g/dL & Higher Efxx=712 mg/dL or greater Result Comment: Bord cayfoc=960-728 mg/dL Higher Khxy=097 mg/dL or greater Performed By: #### L 506.1001, L500.4050, L100.0100, L500.4100, L503.0106, L501.9520 ####[facility] [address] [place], [place], [phone] Lipid Profileon 09-12-2024 CHOL:HDL 3.81 Normal [facility] Comment on above: Performed By: #### L 506.1001, L500.4050, L100.0100, L500.4100, L503.0106, L501.9520 ####[facility] [address] [place], [address] Cholesterol in VLDL [Mass/Vol] 25 mg/dL Normal 5-40 [facility] Comment on above: Performed By: #### L 506.1001, L500.4050, L100.0100, L500.4100, L503.0106, L501.9520 ####[facility] [address] [place], [address] MCV (mean corpuscular volume ) determinationOrdered By: Zebulun Beam on 09-12-2024 MCV (RBC) [Entitic vol] 92.3 fL 81-99 [facility] Mean corpuscular hemoglobin (MCH) determinationOrdered By: Zebulun Beam on 09-12-2024 MCH (RBC) [Entitic mass] 31.0 pg 27.0-32.0 [facility] Mean corpuscular hemoglobin concentration (MCHC) determinationOrdered By: Zebulun Beam on 09-12-2024 MCHC (RBC) [Mass/Vol] 33.6 g/dL 32-36 [facility] Mean platelet volume determi nationOrdered By: Zebulun Beam on 09-12-2024 Platelet mean volume (Bld) [Entitic vol] 10.9 fL 6.2-12.0 [facility] Monocyte percentageOrdered B y: Zebulun Beam on 09-12-2024 Monocytes/100 WBC (Bld) 9.1 % 0-10 [facility] Neutrophil percentageOrdered By: Zebulun Beam on 09-12-2024 Neutrophils/100 WBC (Bld) 50.2 % 47-70 [facility] Nucleated red blood cell per centageOrdered By: Zebulun Beam on 09-12-2024 Nucleated RBC/100 WBC (Bld) [Ratio] 0 % 0-5 [facility] Platelet countOrdered By: Ze bulun Beam on 09-12-2024 Platelets (Bld) [#/Vol] 345 10*3/uL 150-450 [facility] Potassium measurement (mass/ volume)Ordered By: Zebulun Beam on 09-12-2024 Potassium (Unsp spec) [Mass/Vol] 4.2 mmol/L 3.3-5.1 [facility] RBC Auto (Bld) [#/Vol]Ordere d By: Pietro Ramos on 09-12-2024 RBC (Bld) [#/Vol] 4.52 10*6/uL 4.2-5.4 [facility] Screening total cholesterol/ high density lipoprotein (HDL) cholesterol ratioOrdered By: Pietro Ramos on 09-12-2024 Cholesterol.total/Choles terol in HDL [Mass ratio] 3.81 {ratio} [facility] Serum creatinine measurement (mass/volume)Ordered By: Pietro Ramos on 09-12-2024 Creatinine [Mass/Vol] 0.59 mg/dL Low 0.70-1.20 [facility] Comment on above: Performed By: #### L 506.1001, L500.4050, L100.0100, L500.4100, L503.0106, L501.9520 ####[facility] [address] [place], [place], [id number] Serum globulin measurementOr dered By: Pietro Ramos on 09-12-2024 Globulin (S) [Mass/Vol] 3.8 g/dL Normal 2.2-4.2 [facility] Comment on above: Performed By: #### L 506.1001, L500.4050, L100.0100, L500.4100, L503.0106, L501.9520 ####[facility] [address] [place], [place], [id number] Serum glucose measurement (m ass/volume)Ordered By: Pietro Ramos on 09-12-2024 Glucose [Mass/Vol] 91 mg/dL Normal 70-[address] [facility] Comment on above: Performed By: #### L 506.1001, L500.4050, L100.0100, L500.4100, L503.0106, L501.9520 ####[facility] [address] [place], [address] Serum or plasma alanine schmitz otransferase (ALT) measurementOrdered By: Zebulun Beam on 09-12-2024 ALT [Catalytic activity/Vol] 27 U/L Normal <=34 [facility] Comment on above: Performed By: #### L 506.1001, L500.4050, L100.0100, L500.4100, L503.0106, L501.9520 ####[facility] [address] [place], [address] Serum or plasma albumin annika urement (mass/volume)Ordered By: Zebulun Beam on 09-12-2024 Albumin [Mass/Vol] 4.0 g/dL Normal 3.5-5.[address] [facility] Comment on above: Performed By: #### L 506.1001, L500.4050, L100.0100, L500.4100, L503.0106, L501.9520 ####[facility] [address] [facility] [place], [place], [address] Serum or plasma albumin/glob ulin mass ratioOrdered By: Zebulun Beam on 09-12-2024 Albumin/Globulin [Mass ratio] 1.1 {ratio} Normal 0.9-2.4 [facility] Comment on above: Performed By: #### L 506.1001, L500.4050, L100.0100, L500.4100, L503.0106, L501.9520 ####[facility] [address] [place], [place], [address] Serum or plasma alkaline brett sphatase measurementOrdered By: Zebulun Beam on 09-12-2024 ALP [Catalytic activity/Vol] 86 U/L 35-104 [facility] Serum or plasma calcium annika urement (mass/volume)Ordered By: Zebulun Beam on 09-12-2024 Calcium [Mass/Vol] 9.6 mg/dL Normal 7.6-11.[address] [facility] Comment on above: Performed By: #### L 506.1001, L500.4050, L100.0100, L500.4100, L503.0106, L501.9520 ####[facility] [address] [place], [place], [address] Serum or plasma cholesterol in HDL measurement (mass/volume)Ordered By: Zebulun Beam on 09-12-2024 Cholesterol in HDL [Mass/Vol] 39 mg/dL Low [facility] Comment on above: National Cholesterol Education Program (NCEP) guidelines:<40 mg/dL: Low HDL-cholesterol (major risk factor for CHD)>= 60 mg/dL: High HDL-cholesterol (negative risk factor for CHD)HDL-cholesterol is affected by a number of factors, e.g. smoking, exercise, hormones, sex and age. Result Comment: Denita onal Cholesterol Education Program (NCEP) guidelines: <40 mg/dL: Low HDL-cholesterol (major risk factor for CHD) >= 60 mg/dL: High HDL-cholesterol (negative risk factor for CHD) HDL-cholesterol is affected by a number of factors, e.g. smoking, exercise, hormones, sex and age. Performed By: #### L 506.1001, L500.4050, L100.0100, L500.4100, L503.0106, L501.9520 ####[facility] [address] [place], [place], [phone] Serum or plasma cholesterol measurement (mass/volume)Ordered By: Zebulun Beam on 09-12-2024 Cholesterol [Mass/Vol] 149 mg/dL Normal <=190 [facility] Comment on above: Cholesterol level, D esirable <200 mg/dLBorderline high cholesterol 200-239 mg/dLHigh cholesterol >=240 mg/dLRecommendations of the NCEP Adult Treatment Panel for the following risk-cutoff thresholds for the [place] population. Result Comment: Chol esterol level, Desirable <200 mg/dL Borderline high cholesterol 200-239 mg/dL High cholesterol >=240 mg/dL Recommendations of the NCEP Adult Treatment Panel for the following risk-cutoff thresholds for the [place] population. Performed By: #### L 506.1001, L500.4050, L100.0100, L500.4100, L503.0106, L501.9520 ####[facility] [address] [place], [address] Serum or plasma urea nitroge n measurement (mass/volume)Ordered By: Zebulun Beam on 09-12-2024 Urea nitrogen [Mass/Vol] 12 mg/dL Normal 4-19 [facility] Comment on above: Performed By: #### L 506.1001, L500.4050, L100.0100, L500.4100, L503.0106, L501.9520 ####[facility] [address] [place], [address] Sodium levelOrdered By: Zebu whitley Beam on 09-12-2024 Sodium [Moles/Vol] 137 mmol/L Normal 133-[address] [facility] Comment on above: Performed By: #### L 506.1001, L500.4050, L100.0100, L500.4100, L503.0106, L501.9520 ####[facility] [address] [place], [address] TSH DL <= 0.005 mIU/L QnOrde red By: Zebulun Beam on 09-12-2024 TSH Qn 2.920 uIU/mL 0.300-4.200 [facility] Thyroid Stim Hormone (TSH)on 09-12-2024 TSH 2.920 uIU/mL Normal 0.300-4.200 [facility] Comment on above: Performed By: #### L 506.1001, L500.4050, L100.0100, L500.4100, L503.0106, L501.9520 ####[facility] [address] [place], [address] Total proteinOrdered By: Winkelman ulun Beam on 09-12-2024 Protein [Mass/Vol] 7.8 g/dL 5.9-8.[address] [facility] Triglycerides measurementOrd ered By: Pietro Ramos on 09-12-2024 Triglyceride [Mass/Vol] 127 mg/dL Normal [facility] Comment on above: The drugs N-Acetylcy steine and Metamizole may falsely depress this assay. Normal range: <150 mg/dLBorderline High: 150-199 mg/dLHigh: 200-499 mg/dLVery High: >500 mg/dL Result Comment: The drugs N-Acetylcysteine and Metamizole may falsely depress this assay. Normal range: <150 mg/dL Borderline High: 150-199 mg/dL High: 200-499 mg/dL Very High: >500 mg/dL Performed By: #### L 506.1001, L500.4050, L100.0100, L500.4100, L503.0106, L501.9520 ####[facility] [address] [place], [place], [id number] Vitamin B12 ser/plasOrdered By: Pietro Ramos on 09-12-2024 Cobalamin (Vitamin B12) [Mass/Vol] 381 pg/mL Normal 180-914 [facility] Comment on above: Performed By: #### L 506.1001, L500.4050, L100.0100, L500.4100, L503.0106, L501.9520 ####[facility] [address] [facility] [address] [place], [place], [id number] Vitamin D,25 Hydroxyon 09-12 Vitamin D 25-OH 7.1 ng/mL Low 30-100 [facility] Comment on above: Result Comment: Keesha min D Status Deficiency: <20 ng/mL (50nmol/L) Insufficiency: 20-30 ng/mL (50-75 nmol/L) Sufficiency: 30-100 ng/mL (75-250 nmol/L) Toxicity: >100 ng/mL (>250 nmol/L) Performed By: #### L 506.1001, L500.4050, L100.0100, L500.4100, L503.0106, L501.9520 ####[facility] [address] [place], [address] White blood cell (WBC) count Ordered By: Pietro Ramos on 09-12-2024 WBC (Bld) [#/Vol] 11.3 10*3/uL High 4.4-11.0 [facility] Emergency Department Summary on 09-06-2024 Emergency Department Summary [facility] Medical Records Department [address] [place] [address] Emergency Department Summary 09/06/24 MR#: [id number] Acct: [id number] Name: HILLARY VOSS Rep #: [id number] : 2000 24 From: Walter Mijares DO PCP: Care Physician,No Primary Status:DEP ER Location: ED HPI History of Present Illness Chief Complaint: General Illness Informant: patient and parent Narrative Narrative: Patient is a 24-year-old female with no significant past medical history. She states over the last few days she is having bouts of apnea while she sleeps and then has noted excessive daytime sleepiness. She states she was seen in the ER recently for this and was told this is consistent with sleep apnea and she needs to have a sleep study in order to confirm this. Patient states that she does not have a family doctor and at this time cannot get into see 1 for an order for potential sleep study. Mother reports that she does witness the patient snort/snore herself awake and then fall back asleep which is consistent with sleep apnea. She states that as she cannot get into see a family doctor for the further testing she returns today to discuss if there is any type of treatment possible for her symptoms [facility] Home Medications ???Medication ???Instructions ???Recorded ???Last Taken ???Type methocarbamol 500 mg tablet 1,000 mg (2 x 500 mg) PO 4X/DAY Unknown Rx PRN Muscle pain/spasm #56 tabs azelastine 137 mcg (0.1 %) nasal 2 spray intranasal BID #30 mL 08/16 08/08 Unknown Rx spray Allergy/AdvReac Type Severity Reaction Status Date / Time amoxicillin Allergy Hives Verified 09/06/24 00:28 Social History (Updated 04/20/25 @ 07:[address] Raul Buenrostro MD) household members: family Smoking Status: Never smoker ROS ROS ED Constitutional Constitutional ED: Denies chills or fever(s) Eyes Eyes: Denies change in vision ENT ENT ED: Denies sore throat Cardiovascular Cardiovascular: Denies chest pain Respiratory/Chest Respiratory/Chest: Denies cough or dyspnea Gastrointestinal Gastrointestinal: Denies abdominal pain, diarrhea, nausea or vomiting Genitourinary Genitourinary ED: Denies dysuria Musculoskeletal Musculoskeletal: Denies myalgias or neck pain Integumentary Denies rash Neurologic Neurologic: Denies headache(s) Hematologic/Lymphatic Hematologic/Lymphatic : Denies easy bleeding or easy bruising Allergic/Immunologic Allergic/Immunologic ED: Denies mouth swelling or tongue swelling EXAM Physical Exam Const Vital Signs: 09/06/24 00:29 09/06/24 00:32 09/06/24 01:15 Temperature 97.9 F 98.0 F Temperature Source Oral Pulse Rate 98 78 Respiratory Rate 26 H 24 H Respiratory Effort Short of Breath Labored Respiratory Pattern Tachypnea Blood Pressure 150/90 H 138/75 H Blood Pressure Mean 110 96 Pulse Ox 95 100 Oxygen Delivery Method Room Air Positive well nourished, well developed and obese General Appearance ED: well developed; Negative for pallor Nutritional Appearance: obese HEENT Reports moist mucous membranes HEENT Narrative: No tongue or lip swelling no oral lesions no airway edema or compromise Patient does have +2 tonsillar hypertrophy bilaterally without erythema exudates trismus change in voice or difficulty with secretions Eyes PERRL and EOMs intact bilaterally General Eye ED: Negative for scleral icterus Neck supple and no JVD Neck Narrative: No subcutaneous emphysema noted Resp normal respiratory effort and clear to auscultation bilaterally Cardio regular rate and regular rhythm Extremity normal to inspection Neuro oriented x3, CN's II-XII intact bilaterally and no sensory deficits noted Sensorium / Orientation: alert Motor Exam: strength 5/5 throughout Psych mental status grossly normal Skin no rashes or lesions noted General Skin Exam: Negative for jaundice or pallor MDM MDM MDM Narrative Medical decision making narrative: Patient arrived to the ER hypertensive otherwise with stable vitals. History and exam is consistent with sleep apnea. This is most likely from pickwickian syndrome based on her morbid obesity and enlarged neck with tonsillar hypertrophy. There are no findings in the posterior pharynx to suggest peritonsillar abscess or strep throat. She is not hypoxic or in respiratory distress in the ER and therefore do not feel there is need for imaging studies. Patient and family were informed that I cannot perform a sleep study in the ER or provide an order form for it. They also were informed that I cannot provide a CPAP machine which would ultimately be the treatment of choice if the sleep study confirms YADI. At this time they will return home and continue to seek evaluation from an outpatient doctor and I have also informed (more content not included)... Normal [facility] Brain/Head without Contrasto n 09-03-2024 Brain/Head without Contrast [facility] Imaging Services [address] [place] [address] Brain/Head without Contrast MR#: [id number] Acct: [id number] Name: HILLARY VOSS Rep #: [id number] : 2000 F 24 From: Apolonia Chan nd, MD PCP: Care Physician,No Primary Status: REG ER Study: Brain/Head without Contrast Date of Exam: 08/16 Exam# [id number] Ordering Dr: Raul Buenrostro MD EXAM: BRAIN/HEAD WITHOUT CONTRAST CLINICAL HISTORY: 24 y/o F with HEADACHE, TROUBLE CONCENTRATING, PARESTHESIAS LEFT. COMPARISON: None. TECHNIQUE: Routine CT imaging of the head without IV contrast. Additional multiplanar reformats were obtained. Dose reduction techniques were used including intermediate exposure control (AEC),iterative reconstruction technique, and/or mA and/or KV dose adjustments based on patient's size. FINDINGS: No acute intracranial hemorrhage or herniation. The gilbert-white matter interfaces are maintained. No ventriculomegaly. The basal cisterns are patent. Opacification of the bilateral maxillary sinuses, [id number] [id number]. The mastoid air cells are well-aerated. The orbits are unremarkable. No acute calvarial fracture or scalp hematoma. CT/Brain/Head without Contrast IMPRESSION: No acute intracranial finding. Reading Location: [facility] CC: Dr. Raul Buenrostro MD; No Primary Care Physician Car Driver: Signed Normal [facility] Emergency Department Summary on 09-03-2024 Emergency Department Summary [facility] Medical Records Department [address] [place] [address] Emergency Department Summary 09/03/24 MR#: [id number] Acct: [id number] Name: HILLARY VOSS Rep #: [id number] : 2000 24 From: Raul Buenrostro MD PCP: Care Physician,No Primary Status:REG ER Location: ED HPI History of Present Illness Chief Complaint: Head Injury Detail of Chief Complaint: Headaches, forgetfulness, trouble with sleep Informant: patient and parent Onset/Context/Timing Onset: Days Context: Sudden Onset Timing: Intermittent Quality: Detailed in HPI narrative Location: Not applicable Current Severity: Gone Maximum Severity: Moderate Worsened by: Uncertain Relieved by: Not applicable Associated Symptoms Associated Symptoms: HPI narrative Narrative Narrative: Patient is a 24-year-old female. She was seen on August [address] Mijares and Dr[address] Kevin Moscoso saw her on August 31. Chest x-ray was obtained on initial visit. The x-ray interpreted by radiologist and ER physician and no abnormality was noted. There was discussion why a CT of the head was not obtained. Patient has intermittent bilateral headache. Patient's had numbness predominantly left side. Patient reports trouble getting sleep, staying asleep and getting up in the morning. Normal. She has had problems with recalling things and forgetfulness. She also reports dropping things. Mother clarified that she drops things when she falls asleep which is abnormal for her. She has never been assessed for obstructive sleep apnea. (Patient's BMI is 44.8). Mother states she does snore loudly. Patient Nuys double vision, blurred vision loss of vision. She denies ringing in ears or decreased hearing. Denies trouble with speech or swallowing. Patient denies cardiac or respiratory symptoms. Patient denies GI symptoms. Patient has no urologic symptoms. She states she does have problems with balance. Prior similar symptoms: Yes Recent Illness/Hospitalizati on: Yes PFSH PFSH Home Medications ???Medication ???Instructions ???Recorded ???Last Taken ???Type methocarbamol 500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
== END | disposition home or self-care (01) ==
LOC: PSN 06:45
PROVIDERS: PCP Nurse Practitioner Family; Referring Provider Nurse Practitioner Family; Visit Provider Nurse Practitioner Family
DX: R06.02 Shortness of breath (principal)
CPT/HCPCS: 94060; 94726; 94729

== ENCOUNTER → 2025-03-29 | Outpatient (CLI) | payer MEDICAID, SELFPAY | END | disposition home or self-care (01) | LOC: SL 09:54 | PROVIDERS: PCP Nurse Practitioner Family; Referring Provider Nurse Practitioner Family; Visit Provider Nurse Practitioner Family | DX: G47.33 Obstructive sleep apnea (adult) (pediatric) (principal) | CPT/HCPCS: 98960; G0463 ==

== ENCOUNTER → 2025-04-18 | Outpatient (CLI) | payer MEDICAID, SELFPAY ==
--- OUTSIDE RECORDS SUMMARY | 2025-04-18 20:10 | XMS RPT_ITS | CCD ---
Author Organization [facility] Care Team Providers Care Export Packer Name Role Phone Unavailable Primary Care Provider UnavailMORE Castro Referring Unavailable Unavailable Primary Care Provider UnavailDr. Walter Treadwell DO Emergency Provider Care Physician, No Primary Primary Care Provider Unavailable Dr. Ángela Moscoso DO Emergency Provider Dr. Walter Mijares DO Attending Provider Dr. Ángela Moscoso DO Attending Provider Dr. Raul Buenrostro MD Emergency Provider Dr. Raul Buenrostro MD Attending Provider Beam LENS AND FRAMES PRESCRIPTION CLERK-C, Zebulun Primary Care Provider Beam LENS AND FRAMES PRESCRIPTION CLERK-C, Zebujoyn Attending Provider Dr. Jeniffer Hernandez DO Emergency Provider Dr. Conner Mckinney MD Emergency Provider Dr. Jeniffer Hernandez DO Attending Provider Dr. Conner Mckinney MD Attending Provider Beam, Zebulun Z Attending Provider Unavailable Beam, Zebulun Z Referring Provider Unavailable Dr. Augustin Patel DO Attending Provider Dr. Augustin Patel DO Referring Provider SAMANTHA YAN Attending Unavailable SELF, SELF Referring Unavailable BEAM, ZEBULUN Primary Care Unavailable Beam LENS AND FRAMES PRESCRIPTION CLERK-C, Zebulun Primary Care Physician Dr. Augustin Patel DO Attending Physician Tannhof LENS AND FRAMES PRESCRIPTION CLERK-C, Anne Marie Primary Care Physician Faye ALVES, Dr. Prieto Emergency Department Phys ician Beam LENS AND FRAMES PRESCRIPTION CLERK-C, Zebulun Primary Care Physician Jorge CABRAL, Dr. Ruffin Attending Physician Jorge CABRAL, Dr. Ruffin Referring Provider Faye ALVES, Dr. Prieto Attending Physician Tannhof LENS AND FRAMES PRESCRIPTION CLERK-C, Anne Marie Attending Physician Tannhof LENS AND FRAMES PRESCRIPTION CLERK-C, Anne Marie Referring Provider Katja CABRAL, Dr. Alonso Attending Physician Katja CABRAL, Dr. Alonso Emergency Department Physic jana Conner Mckinney Attending Unavailable Tannhof, Anne Marie Primary Care Unavailable Tannhof, Anne Marie Primary Care Unavailable Gavin Hightower Attending Unavailable Tannhof, Anne Marie Primary Care Unavailable Tannhof, Anne Marie Referring Unavailable Veda Miles Attending Unavailable Walter Mijares Attending Unavailable Care Physician, No Primary Primary Care Unava ilable Care Physician, No Primary Primary Care Unava ilable Ángela Moscoso Attending Unavailable Beam VSC, Zebulun Primary Care Unavailable Beam VSC, Zebulun Attending Unavailable Beam, Zebulun Z Attending Unavailable Beam, Zebulun Z Referring Unavailable Beam VSC, Zebulun Primary Care Unavailable Augustin Patel Attending Unavailable Augustin Patel Referring Unavailable Beam VSC, Zebulun Primary Care Unavailable Augustin Patel Attending Unavailable Augustin Patel Referring Unavailable Beam VSC, Zebulun Primary Care Unavailable Tannhof, Anne Marie Attending Unavailable Tannhof, Anne Marie Referring Unavailable Tannhof, Anne Marie Primary Care Unavailable Raul Buenrostro Attending Unavailable Care Physician, No Primary Primary Care Unava ilable Jeniffer Hernandez Attending Unavailable Beam VSC, Zebulun Primary Care Unavailable Tannhof, Anne Marie Primary Care Unavailable Veda Miles Attending Unavailable Veda Miles Referring Unavailable Tannhof, Anne Marie Primary Care Unavailable Veda Miles Attending Unavailable Veda Miles Referring Unavailable Conner Mckinney Attending Unavailable [facility], Pietro Primary Care Unavailable Walter Mijares Attending Unavailable Care Physician, No Primary Primary Care Unava ilable Allergies Allergy Classification Reported Allergen(s) Allergy Type Date of Onset Reaction(s) Facility (14 sources) Amoxicillin; Translations: [AMOXICILLIN] Drug Allergy 03-20-2005 [facility] (1 source) Amoxicillin Drug Allergy 03-23-2025 [facility] Repository Medications Current Medications Medication Drug Class(es) Dates Sig (Normalized) Sig (Original) CPAP - Continuous Positive Airway Pressure([facility] INFORMATIONAL USE ONLY) (1 source) Start: 02-26-2025 CPAP - Continuous Positive Airway Pressure([facility] INFORMATIONAL USE ONLY) Active 0 .ROUTE .MEDSUPPLY February 26, 2025 12:00am CPAP 13 DME- DASCO MASK- MEDIUM RESMED F20 FULL FACE MASK cyclobenzaprine hydrochloride 10 mg oral tablet (1 source) Muscle Relaxant Start: 02-23-2025 take 1 tablet by mouth three times daily as needed for muscle spasms [place] (Nk) (1 source) Start: 02-11-2025 [place] (Nk) Active February 11, 2025 12:00am [id number] 0.5 MG CHEWABLE TAB (3 sources) Start: 03-20-2005 [id number] 0.5 MG CHEWABLE TAB Take one(1) tablet [...] encounter] 08-30-2024 Episodic Other lower respiratory disease (2 sources) Shortness of breath; Translations: [Shortness of breath] [...] Apnea] Onset: 10-11-2024 Chronic Residual codes; unclassified (2 sources) Obstructive sleep apnea (adult) (pediatric); Translations: [Obstructive [...] Facility Pulmonary Visit Reporton Pulmonary Visit Report [facility] Pulmonary Medicine [address] [place] [address] OFFICE VISIT Date of Service: 03/23/25 MR#: [id number] Acct: [id number] Name: HILLARY VOSS Rep #: [id number] : 2000 Provider: Veda Miles NP Age/Sex: 25/F [place] [facility] Status: Signed Assessment and Plan Assessment and [...] breath Plan This note was generated with Unii dictation software. It may contain incorrect words, [...] labored b (more content not included)... Normal [facility] Absolute lymphocyte countOrd ered By: Gavin Hightower on 02-23-2025 Lymphocytes Auto (Unsp spec) [#/Vol] 2.70 10*3/uL 0.83-4.51 [facility] Absolute neutrophil countOrd ered By: Gavin Hightower on 02-23-2025 Neutrophils (Bld) [#/Vol] 6.3 10*3/uL 2.0-7.7 [facility] Activated partial thrombopla stin time (aPTT) in platelet poor plasma by coagulation aOrdered By: Gavin Hightower on 02-23-2025 aPTT Coag (PPP) [Time] 28.8 s 24.1-36.2 [facility] Anion gap in Serum or Plasma Ordered By: Gavin Hightower on 02-23-2025 Anion gap [Moles/Vol] 10 mmol/L 09-28 [facility] Automated lymphocyte count a s percentage of total leukocytesOrdered By: Gavin Hightower on 02-23-2025 Lymphocytes/100 WBC Auto (Unsp spec) 27.2 % [facility] BUN/creatinine ratioOrdered By: Gavin Hightower on 02-23-2025 Urea nitrogen/Creatinine [Mass ratio] 15.3 mg/mg 03-05 [facility] Basic Metabolic Profile (BMP )on 02-23-2025 BUN/CRE 15.3 RATIO Normal 03-05 [facility] Comment on above: Performed By: #### L 500.2500, L300.3900, L700.6800, L500.3400, L100.0100, L300.4310 ####[facility] [address] [place], [address] Calcium [Mass/Vol] 9.6 mg/dL Normal 7.6-11.0 [facility] Comment on above: Performed By: #### L 500.2500, L300.3900, L700.6800, L500.3400, L100.0100, L300.4310 ####[facility] [address] [place], [address] Chloride [Moles/Vol] 100 mmol/L Normal 98-108 [facility] Comment on above: Performed By: #### L 500.2500, L300.3900, L700.6800, L500.3400, L100.0100, L300.4310 ####[facility] [address] [place], [address] CO2 [Moles/Vol] 29.0 mmol/L Normal 21.0-32.0 [facility] Comment on above: Performed By: #### L 500.2500, L300.3900, L700.6800, L500.3400, L100.0100, L300.4310 ####[facility] [address] [place], [address] Creatinine [Mass/Vol] 0.67 mg/dL Low 0.70-1.20 [facility] Comment on above: Performed By: #### L 500.2500, L300.3900, L700.6800, L500.3400, L100.0100, L300.4310 ####[facility] [address] [place], [address] ECRCL 187.39 ml/min Normal 50-250 [facility] Comment on above: Performed By: #### L 500.2500, L300.3900, L700.6800, L500.3400, L100.0100, L300.4310 ####[facility] [address] [place], [address] GAP 10 Normal 5-15 [facility] Comment on above: Performed By: #### L 500.2500, L300.3900, L700.6800, L500.3400, L100.0100, L300.4310 ####[facility] [address] [place], [address] GFR/1.73 sq M.predicted among non-blacks MDRD (S/P/Bld) [Vol rate/Area] 125 mL/min/{1.73_m2} Normal >60 [facility] Comment on above: Result Comment: mL/m in/1.73m2 CKD-EPI Creatinine Equation (2020) Performed By: #### L 500.2500, L300.3900, L700.6800, L500.3400, L100.0100, L300.4310 ####[facility] [address] [place], [address] Glucose [Mass/Vol] 144 mg/dL High 70-99 [facility] Comment on above: Performed By: #### L 500.2500, L300.3900, L700.6800, L500.3400, L100.0100, L300.4310 ####[facility] [address] [place], [address] Potassium [Moles/Vol] 4.0 mmol/L Normal 3.3-5.1 [facility] Comment on above: Performed By: #### L 500.2500, L300.3900, L700.6800, L500.3400, L100.0100, L300.4310 ####[facility] [address] [place], [address] Sodium [Moles/Vol] 139 mmol/L Normal 133-145 [facility] Comment on above: Performed By: #### L 500.2500, L300.3900, L700.6800, L500.3400, L100.0100, L300.4310 ####[facility] [address] [place], [address] Urea nitrogen [Mass/Vol] 10 mg/dL Normal 4-19 [facility] Comment on above: Performed By: #### L 500.2500, L300.3900, L700.6800, L500.3400, L100.0100, L300.4310 ####[facility] [address] [place], [address] Basophil percentageOrdered B y: Gavin Hightower on 02-23-2025 Basophils/100 WBC (Bld) 0.5 % 0-1 [facility] Bilirubin Test strip Ql (U)O rdered By: Gavin Hightower on 02-23-2025 Bilirubin Ql (U) Negative Negative [facility] Bilirubin directOrdered By: Gavin Hightower on 02-23-2025 Bilirubin.direct [Mass/Vol] 0.14 mg/dL 0.00-0.30 [facility] Bilirubin, totalOrdered By: Gavin Hightower on 02-23-2025 Bilirubin [Mass/Vol] 0.33 mg/dL 0.00-1.30 [facility] Brain/Head without Contrasto n 10-10-2025 Brain/Head without Contrast [facility] Imaging Services [address] [place], [place] [address] Brain/Head without Contrast MR#: [id number] Acct: [id number] Name: HILLARY VOSS Rep #: [id number] : 2000 F 25 From: Zeke Yancey MD PCP: MAXIME Ware Status: REG ER Study: Brain/Head without Contrast Date of Exam: 02/14 Exam# [id number] Ordering Dr: Gavin Hightower DO PROCEDURE: BRAIN/HEAD [...] IMPRESSION: No acute intracranial abnormalities. Reading Location: [facility] CC: MAXIME Munoz; Dr. Gavin Hightower DO Divorce Mediator: Signed Normal [facility] CBC W/Diff, Automatedon 02-14 Absolute Lymph 2.70 X10 3/uL Normal 0.83-4.51 [facility] Comment on above: Performed By: #### L 500.2500, L300.3900, L700.6800, L500.3400, L100.0100, L300.4310 ####[facility] [address] [place], [place], [id number] Absolute Neut 6.3 X10 3/uL Normal 2.0-7.7 [facility] Comment on above: Performed By: #### L 500.2500, L300.3900, L700.6800, L500.3400, L100.0100, L300.4310 ####[facility] [address] [place], [address] Basophils/100 WBC (Bld) 0.5 % Normal 0-1 [facility] Comment on above: Performed By: #### L 500.2500, L300.3900, L700.6800, L500.3400, L100.0100, L300.4310 ####[facility] [address] [place], [address] Eosinophils/100 WBC (Bld) 0.9 % Normal 0-5 [facility] Comment on above: Performed By: #### L 500.2500, L300.3900, L700.6800, L500.3400, L100.0100, L300.4310 ####[facility] [address] [place], [address] Erythrocyte distribution width (RBC) [Ratio] 12.3 % Normal 11.6-14.6 [facility] Comment on above: Performed By: #### L 500.2500, L300.3900, L700.6800, L500.3400, L100.0100, L300.4310 ####[facility] [address] [place], [address] Hematocrit (Bld) [Volume fraction] 39.7 % Normal 37-47 [facility] Comment on above: Performed By: #### L 500.2500, L300.3900, L700.6800, L500.3400, L100.0100, L300.4310 ####[facility] [address] [place], [address] Hemoglobin (Bld) [Mass/Vol] 13.2 g/dL Normal 12.0-15.0 [facility] Comment on above: Performed By: #### L 500.2500, L300.3900, L700.6800, L500.3400, L100.0100, L300.4310 ####[facility] [address] [place], [address] IG% 0.300 Normal 0.0-0.9 [facility] Comment on above: Result Comment: IG% - Immature Granulocytes (promyelocytes, myelocytes and metamyelocytes) > 1% indicates that a LEFT SHIFT is Present. Performed By: #### L 500.2500, L300.3900, L700.6800, L500.3400, L100.0100, L300.4310 ####[facility] [address] [place], [address] Lymphocytes/100 WBC (Bld) 27.2 % Normal 19-41 [facility] Comment on above: Performed By: #### L 500.2500, L300.3900, L700.6800, L500.3400, L100.0100, L300.4310 ####[facility] [address] [place], [address] MCH (RBC) [Entitic mass] 31.1 pg Normal 27.0-32.0 [facility] Comment on above: Performed By: #### L 500.2500, L300.3900, L700.6800, L500.3400, L100.0100, L300.4310 ####[facility] [address] [place], [address] MCHC (RBC) [Mass/Vol] 33.2 g/dL Normal 32-36 [facility] Comment on above: Performed By: #### L 500.2500, L300.3900, L700.6800, L500.3400, L100.0100, L300.4310 ####[facility] [address] [place], [address] MCV (RBC) [Entitic vol] 93.6 fL Normal 81-99 [facility] Comment on above: Performed By: #### L 500.2500, L300.3900, L700.6800, L500.3400, L100.0100, L300.4310 ####[facility] [address] [place], [address] Monocytes/100 WBC (Bld) 8.1 % Normal 0-10 [facility] Comment on above: Performed By: #### L 500.2500, L300.3900, L700.6800, L500.3400, L100.0100, L300.4310 ####[facility] [address] [place], [address] Neutrophils/100 WBC (Bld) 63.0 % Normal 47-70 [facility] Comment on above: Performed By: #### L 500.2500, L300.3900, L700.6800, L500.3400, L100.0100, L300.4310 ####[facility] [address] [place], [address] Nucleated RBC (Bld) [#/Vol] 0 10*3/uL Normal 0-5 [facility] Comment on above: Performed By: #### L 500.2500, L300.3900, L700.6800, L500.3400, L100.0100, L300.4310 ####[facility] [address] [place], [address] Platelet mean volume (Bld) [Entitic vol] 12.9 fL High 6.2-12.0 [facility] Comment on above: Performed By: #### L 500.2500, L300.3900, L700.6800, L500.3400, L100.0100, L300.4310 ####[facility] [address] [place], [address] Platelets (Bld) [#/Vol] 260 10*3/uL Normal 150-450 [facility] Comment on above: Performed By: #### L 500.2500, L300.3900, L700.6800, L500.3400, L100.0100, L300.4310 ####[facility] [address] [place], [address] RBC (Bld) [#/Vol] 4.24 10*6/uL Normal 4.2-5.4 [facility] Comment on above: Performed By: #### L 500.2500, L300.3900, L700.6800, L500.3400, L100.0100, L300.4310 ####[facility] [address] [place], [address] RDW SD 42.4 fl Normal 35.1-43.9 [facility] Comment on above: Performed By: #### L 500.2500, L300.3900, L700.6800, L500.3400, L100.0100, L300.4310 ####[facility] [address] [place], [address] WBC (Bld) [#/Vol] 9.9 10*3/uL Normal 4.4-11.0 [facility] Comment on above: Performed By: #### L 500.2500, L300.3900, L700.6800, L500.3400, L100.0100, L300.4310 ####[facility] [address] [place], [address] CT Chest, Abd, Pel w/Contras ton 02-23-2025 CT Chest, Abd, Pel w/Contrast [facility] Imaging Services [address] [place] [address] CT Chest, Abd, Pel w/Contrast MR#: [id number] Acct: [id number] Name: HILLARY VOSS Rep #: [id number] : 2000 F 25 From: Zeke Yancey MD PCP: MAXIME Ware Status: REG ER Study: CT Chest, Abd, Pel w/Contrast Date of Exam: Exam# [id number] Ordering Dr: Gavin Hightower DO PROCEDURE: CT [...] the chest, abdomen and pelvis. Reading Location: [facility] CC: MAXIME Munoz; Dr. aGvin Hightower DO Divorce Mediator: Signed Normal [facility] Carbon dioxide, total [Moles /volume] in Central venous bloodOrdered By: Gavin Hightower on 02-23-2025 CO2 [Moles/Vol] 29.0 mmol/L 21.0-32.0 [facility] Chloride assayOrdered By: Darren Hightower on 02-23-2025 Chloride [Moles/Vol] 100 mmol/L 98-108 [facility] Emergency Department Summary on 02-23-2025 Emergency Department Summary [facility] Medical Records Department [address] [place] [address] Emergency Department Summary 02/23/25 MR#: [id number] Acct: [id number] Name: HILLARY VOSS Rep #: [id number] : 2000 25 From: Gavin Hightower DO [...] Patient denies any pain in her elbows. [facility] Medical History YADI (obstructive sleep apnea) Home [...] hematomas noted bilaterally, no raccoon eyes no Layen sign Neck: Soft, supple, trachea midline, no [...] following commands knew that she was at [facility] the year is 2024 sensation grossly [...] have low (more content not included)... Normal [facility] Eosinophil percentageOrdered By: Gavin Hightower on 02-23-2025 Eosinophils/100 WBC (Bld) 0.9 % 0-5 [facility] Erythrocyte distribution wid th ratioOrdered By: Gavinursula Hightower on 02-23-2025 Erythrocyte distribution width (RBC) [Ratio] 12.3 % 11.6-14.6 [facility] Erythrocyte distribution wid th standard deviationOrdered By: Gavin Hightower on 02-23-2025 Erythrocyte distribution width (RBC) [Ratio] 42.4 fl 35.1-43.9 [facility] Glomerular filtration rate ( GFR) estimation/1.73 sq m using serum, plasma, or whole bOrdered By: Gavin Hightower on 02-23-2025 GFR/1.73 sq M.predicted among non-blacks MDRD (S/P/Bld) [Vol rate/Area] 125 mL/min/{1.73_m2} >60 [facility] Comment on above: mL/min/1.73m2 CKD-EP I Creatinine Equation (2020) Hematocrit Auto (Bld) [Volum e fraction]Ordered By: Gavin Hightower on 02-23-2025 Hematocrit (Bld) [Volume fraction] 39.7 % 37-47 [facility] Hemoglobin measurementOrdere d By: Gavin Hightower on 02-23-2025 Hemoglobin (Bld) [Mass/Vol] 13.2 g/dL 12.0-15.0 [facility] Immature granulocytes/100 WB C Auto (Bld)Ordered By: Gavin Hightower on 02-23-2025 Immature granulocytes/100 WBC (Bld) 0.300 % 0.0-0.9 [facility] Comment on above: IG% - Immature Granu locytes (promyelocytes, myelocytes and metamyelocytes) > 1% indicates that a LEFT SHIFT is Present. International normalized rat io (INR) calculationOrdered By: Gavin Diazer on 02-23-2025 INR Coag (Bld) [Relative time] 1.1 {INR} [facility] Ketones Test strip Ql (U)Ord ered By: Gavin Hightower on 02-23-2025 Ketones Ql (U) Negative Negative [facility] Laboratory - Chemistry and C hemistry - challengeOrdered By: Gavin Hightower on 02-23-2025 AST [Catalytic activity/Vol] 20 U/L <32 [facility] Liver Profileon 02-23-2025 Albumin [Mass/Vol] 3.8 g/dL Normal 3.5-5.0 [facility] Comment on above: Performed By: #### L 500.2500, L300.3900, L700.6800, L500.3400, L100.0100, L300.4310 ####[facility] [address] [place], [place], [id number] ALK PHOS 82 U/L Normal 35-104 [facility] Comment on above: Performed By: #### L 500.2500, L300.3900, L700.6800, L500.3400, L100.0100, L300.4310 ####[facility] [address] [place], [place], [phone] ALT [Catalytic activity/Vol] 19 U/L Normal <=34 [facility] Comment on above: Performed By: #### L 500.2500, L300.3900, L700.6800, L500.3400, L100.0100, L300.4310 ####[facility] [address] [place], [place], [phone] [Catalytic activity/Vol] 20 U/L Normal <=31 [facility] Comment on above: Performed By: #### L 500.2500, L300.3900, L700.6800, L500.3400, L100.0100, L300.4310 ####[facility] [address] [place], [address] Bilirubin [Mass/Vol] 0.33 mg/dL Normal 0.00-1.30 [facility] Comment on above: Performed By: #### L 500.2500, L300.3900, L700.6800, L500.3400, L100.0100, L300.4310 ####[facility] [address] [place], [address] Bilirubin.direct [Mass/Vol] 0.14 mg/dL Normal 0.00-0.30 [facility] Comment on above: Performed By: #### L 500.2500, L300.3900, L700.6800, L500.3400, L100.0100, L300.4310 ####[facility] [address] [place], [phone] Globulin (S) [Mass/Vol] 4.0 g/dL Normal 2.2-4.2 [facility] Comment on above: Performed By: #### L 500.2500, L300.3900, L700.6800, L500.3400, L100.0100, L300.4310 ####[facility] [address] [place], [address] T PROT 7.8 g/dL Normal 5.9-8.4 [facility] Comment on above: Performed By: #### L 500.2500, L300.3900, L700.6800, L500.3400, L100.0100, L300.4310 ####[facility] [address] [place], [phone] MCV (mean corpuscular volume ) determinationOrdered By: Gavin Hightower on 02-23-2025 MCV (RBC) [Entitic vol] 93.6 fL 81-99 [facility] Mean corpuscular hemoglobin (MCH) determinationOrdered By: Gavin Hightower on 02-23-2025 MCH (RBC) [Entitic mass] 31.1 pg 27.0-32.0 [facility] Mean corpuscular hemoglobin concentration (MCHC) determinationOrdered By: Gavin Hightower on 02-23-2025 MCHC (RBC) [Mass/Vol] 33.2 g/dL 32-36 [facility] Mean platelet volume determi nationOrdered By: Gavin Hightower on 02-23-2025 Platelet mean volume (Bld) [Entitic vol] 12.9 fL High 6.2-12.0 [facility] Microscopic analysis of urin e for red blood cells (RBC)Ordered By: Gavin Hightower on 02-23-2025 Microscopic analysis of urine for red blood cells (RBC) 10-25 SEEN /hpf 0-5 [facility] Monocyte percentageOrdered B y: Gavin Hightower on 02-23-2025 Monocytes/100 WBC (Bld) 8.1 % 0-10 [facility] Mucus LM Ql (Urine sed)Order ed By: Gavin Hightower on 02-23-2025 Mucus Ql (Urine sed) 0 SEEN /hpf [facility] Neutrophil percentageOrdered By: Gavin Hightower on 02-23-2025 Neutrophils/100 WBC (Bld) 63.0 % 47-70 [facility] Nitrite Test strip Ql (U)Ord ered By: Gavin Hightower on 02-23-2025 Nitrite Ql (U) Negative Negative [facility] Nucleated red blood cell per centageOrdered By: Gavin Hightower on 02-23-2025 Nucleated RBC/100 WBC (Bld) [Ratio] 0 % 0-5 [facility] Partial Thromboplast Timeon 02-23-2025 aPTT Coag (Bld) [Time] 28.8 s Normal 24.1-36.2 [facility] Comment on above: Performed By: #### L 500.2500, L300.3900, L700.6800, L500.3400, L100.0100, L300.4310 ####[facility] [address] [place], [place], [phone] Platelet countOrdered By: Darren Hightower on 02-23-2025 Platelets (Bld) [#/Vol] 260 10*3/uL 150-450 [facility] Potassium measurement (mass/ volume)Ordered By: Gavin Hightower on 02-23-2025 Potassium (Unsp spec) [Mass/Vol] 4.0 mmol/L 3.3-5.1 [facility] ,Serum,hCG Quali.on 02-23-2025 HCG, SERUM QUAL Negative Normal [facility] Comment on above: Performed By: #### L 500.2500, L300.3900, L700.6800, L500.3400, L100.0100, L300.4310 ####[facility] [address] [place], [address] Protein Test strip Ql (U)Ord ered By: Gavin Hightower on 02-23-2025 Protein Ql (U) 30 mg/dl High Negative [facility] Prothrombin Time w/INRon INR Coag (PPP) [Relative time] 1.1 {INR} Normal [facility] Comment on above: Performed By: #### L 500.2500, L300.3900, L700.6800, L500.3400, L100.0100, L300.4310 ####[facility] [address] [place], [address] PT Coag (PPP) [Time] 14.0 s Normal 11.7-14.9 [facility] Comment on above: Performed By: #### L 500.2500, L300.3900, L700.6800, L500.3400, L100.0100, L300.4310 ####[facility] [address] [place], [address] Prothrombin timeOrdered By: Gavin Hightower on 02-23-2025 PT Coag (PPP) [Time] 14.0 s 11.7-14.9 [facility] RBC Auto (Bld) [#/Vol]Ordere d By: Gavin Hightower on 02-23-2025 RBC (Bld) [#/Vol] 4.24 10*6/uL 4.2-5.4 [facility] Serum beta-hCG test, qualita tiveOrdered By: Gavin Hightower on 02-23-2025 Beta HCG ( test) Ql Negative [facility] Serum creatinine measurement (mass/volume)Ordered By: Gavin Hightower on 02-23-2025 Creatinine [Mass/Vol] 0.67 mg/dL Low 0.70-1.20 [facility] Serum globulin measurementOr dered By: Gavin Hightower on 02-23-2025 Globulin (S) [Mass/Vol] 4.0 g/dL 2.2-4.2 [facility] Serum glucose measurement (m ass/volume)Ordered By: Gavin Hightower on 02-23-2025 Glucose [Mass/Vol] 144 mg/dL High 70-99 [facility] Serum or plasma alanine schmitz otransferase (ALT) measurementOrdered By: Gavin Hightower on 02-23-2025 ALT [Catalytic activity/Vol] 19 U/L <35 [facility] Serum or plasma albumin annika urement (mass/volume)Ordered By: Gavin Hightower on 02-23-2025 Albumin [Mass/Vol] 3.8 g/dL 3.5-5.0 [facility] Serum or plasma alkaline brett sphatase measurementOrdered By: Gavin Hightower on 02-23-2025 ALP [Catalytic activity/Vol] 82 U/L 35-104 [facility] Serum or plasma calcium annika urement (mass/volume)Ordered By: Gavin Hightower on 02-23-2025 Calcium [Mass/Vol] 9.6 mg/dL 7.6-11.0 [facility] Serum or plasma urea nitroge n measurement (mass/volume)Ordered By: Gavin Hightower on 02-23-2025 Urea nitrogen [Mass/Vol] 10 mg/dL 4-19 [facility] Sodium levelOrdered By: Lesly Hightower on 02-23-2025 Sodium [Moles/Vol] 139 mmol/L 133-145 [facility] Spine Cervical without Contr ason 02-23-2025 Spine Cervical without Contras [facility] Imaging Services [address] [place] [address] Spine Cervical without Contras MR#: [id number] Acct: [id number] Name: HILLARY VOSS Rep #: [id number] : 2000 F 25 From: Zeke Yancey MD PCP: MAXIME Ware Status: REG ER Study: Spine Cervical without Contras Date of Exam: 1 Exam# [id number] Ordering Dr: Gavin Hightower DO PROCEDURE: SPINE [...] injury to the cervical spine. Reading Location: [facility] CC: LENS AND FRAMES PRESCRIPTION CLERK-C Anne Marie Munoz; Dr. Gavin Hightower DO Divorce Mediator: Signed Normal [facility] Squamous epithelial cells de tection in urine sediment by light microscopyOrdered By: Gavin Hightower on 02-23-2025 Epithelial cells.squamous LM Ql (Urine sed) 0-5 SEEN /hpf 09-23 [facility] Total proteinOrdered By: Tammy Hightower on 02-23-2025 Protein [Mass/Vol] 7.8 g/dL 5.9-8.4 [facility] Urinalysis, Completeon 02-23 CAST,COARSE GR 0-5 SEEN Normal 0-5 /lpf [facility] Comment on above: Order Comment: CLEAN CATCH Performed By: #### L 400.0001 ####[facility] [address] [place], [address] EPI,SQUAMOUS 0-5 SEEN Normal 5-10 [facility] Comment on above: Order Comment: CLEAN CATCH Performed By: #### L 400.0001 ####[facility] [address] [place], [address] RBC 10-25 SEEN Normal 0-5 [facility] Comment on above: Order Comment: CLEAN CATCH Performed By: #### L 400.0001 ####[facility] [address] [place], [address] BACTERIA 0 SEEN Normal None Seen [facility] Comment on above: Order Comment: CLEAN CATCH Performed By: #### L 400.0001 ####[facility] [address] [place], [address] Mucus Ql (Urine sed) 0 SEEN Normal [facility] Comment on above: Order Comment: CLEAN CATCH Performed By: #### L 400.0001 ####[facility] [address] [place], [address] WBC 0 SEEN Normal 0-5 [facility] Comment on above: Order Comment: CLEAN CATCH Performed By: #### L 400.0001 ####[facility] [address] [place], [address] Urine clarityOrdered By: Tammy Hightower on 02-23-2025 Clarity (U) Sl. Cloudy Clear [facility] Urine coarse granular cast d etectionOrdered By: Gavin Hightower on 02-23-2025 Coarse Granular Casts LM Ql (Urine sed) 0-5 SEEN /lpf 0-5 /lpf [facility] Urine color determinationOrd ered By: Gavin Hightower on 02-23-2025 Color (U) Yellow Yellow [facility] Urine glucose detectionOrder ed By: Gavin Hightower on 02-23-2025 Glucose Ql (U) Normal mg/dl Normal [facility] Urine leukocyte esterase det ection by dipstickOrdered By: Gavin Hightower on 02-23-2025 Leukocyte esterase Test strip Ql (U) Negative Negative [facility] Urine pHOrdered By: Gavin harry on 02-23-2025 pH (U) 7.0 [pH] 5.0 - 8.0 [facility] Urine sediment bacteria coun t by microscopy (number/high power field)Ordered By: Gavin Hightower on 02-23-2025 Bacteria LM.HPF (Urine sed) [#/Area] 0 /[HPF] None Seen [facility] Urine specific gravity measu rementOrdered By: Gavin Hightower on 02-23-2025 Specific gravity (U) [Rel density] 1.010 1.002-1.030 [facility] Urine urobilinogen measureme ntOrdered By: Gavin Hightower on 02-23-2025 Urobilinogen Ql (U) Normal mg/dl Normal [facility] White blood cell (WBC) count Ordered By: Gavin Hightower on 02-23-2025 WBC (Bld) [#/Vol] 9.9 10*3/uL 4.4-11.0 [facility] White blood cell countOrdere d By: Gavin Hightower on 02-23-2025 White blood cell count 0 SEEN /hpf 0-5 [facility] Chest PA and Lateralon 02-14 Chest PA and Lateral [facility] Imaging Services [address] [place] [address] Chest PA and Lateral MR#: [id number] Acct: [id number] Name: HILLARY VOSS Rep #: [id number] : 2000 F 24 From: Marc De Dios MD PCP: MAXIME Ware Status: REG CLI Study: Chest PA and Lateral Date of Exam: 02/14/25 Exam# [id number] Ordering Dr: Anne Marie Munoz PROCEDURE: CHEST PA AND LATERAL 02/14/2025 REASON FOR EXAM: COUGH TECHNIQUE: Procedure Code: RADCXR Modality: DX Procedure: CHEST PA AND LATERAL FINDINGS: The heart is normal in size. The lungs are clear. No acute osseous abnormalities. RAD/Chest PA and Lateral IMPRESSION: NO ACUTE FINDINGS. Reading Location: [facility] CC: LENS AND FRAMES PRESCRIPTION CLERK-C Anne Marie Munoz Divorce Mediator: Signed Normal [facility] Emergency Department Summary on 02-11-2025 Emergency Department Summary [facility] Medical Records Department [address] [place] [address] Emergency Department Summary 02/11/25 MR#: [id number] Acct: [id number] Name: HILLARY VOSS Rep #: [id number] : 2000 24 From: Conner Mckinney MD PCP: Anne Marie Munoz, MAXIME Status:REG ER Location: ED HPI HPI - [...] going on for 1-2 weeks. Presents between 1945-3532 AM because we need to fix this [...] for it. She also has taken no auio-ode-hpkyyyi cold or flu medications for any of [...] thoughts Endocrine Endocrinology: Denies polydipsia or polyuria [facility] Medical History (Updated 02/11/25 @ 06:27 by [...] negative. She (more content not included)... Normal [facility] Influenza virus A and B and SARS-CoV-2 (COVID-19) and Respiratory syncytial virus RNAOrdered By: Conner Mckinney on 02-11-2025 SARS-CoV-2 (COVID-19) RNA ROYCE+probe Ql (Unsp spec) [facility] M100.678on 02-11-2025 M100.678 SARS-CoV-2 (COVID 19 ) Negative INFLUENZA A Negative INFLUENZA B Negative RSV PCR Negative Normal [facility] Comment on above: Performed By: #### M 100.678 #### [facility] [address] [place], [place], [id number] Culture, Throaton 09-27-2024 CUT No beta-hemolytic streptococcus [...] S Vancomycin Islt CHRISTOPHER 1 S Normal [facility] Comment on above: Performed By: #### M 100.1000 ####[facility] [address] [facility] [place], [place], [id number] 12 Lead EKGon 09-25-2024 12 Lead EKG [facility] Cardiovascular Services [address] [place] [address] 12 Lead EKG 09/25/24 2150 MR#: [id number] Acct: [id number] Name: HILLARY VOSS Rep #: [id number] : 2000 24 From: Eduardo Perkins MD [...] Normal ECG Confirmed by Eduardo Perkins ([id number]), web content editor LAYO MARTINEZ ([id number]) on 09/26/2024 9:17:39 AM Referred By: Confirmed By: Eduardo Perkins 09/26/24 0917 Date Eduardo Perkins MD CC: Dr. Conner Mckinney MD; Nichellekareem [facility] LENS AND FRAMES PRESCRIPTION CLERK-C Rachel Signed Normal [facility] Emergency Department Summary on 09-25-2024 Emergency Department Summary [facility] Medical Records Department [address] [place] [address] Emergency Department Summary 09/25/24 MR#: [id number] Acct: [id number] Name: HILLARY VOSS Rep #: [id number] : 2000 24 From: Conner Mckinney MD PCP: Pietro Ramos LENS AND FRAMES PRESCRIPTION CLERK-C Status:DEP ER Location: ED HPI History of [...] Also off balance with walking at times. PFS PFS Medical History no medical history Home [...] her, th (more content not included)... Normal [facility] Absolute lymphocyte countOrd ered By: Jeniffer Hernandez on 09-20-2024 Lymphocytes Auto (Unsp spec) [#/Vol] 3.44 10*3/uL 0.83-4.51 [facility] Absolute neutrophil countOrd ered By: Jeniffer Hernandez on 09-20-2024 Neutrophils (Bld) [#/Vol] 8.5 10*3/uL High 2.0-7.7 [facility] Anion gap in Serum or Plasma Ordered By: Jeniffer Hernandez on 09-20-2024 Anion gap [Moles/Vol] 11 mmol/L 5-15 [facility] Automated lymphocyte count a s percentage of total leukocytesOrdered By: Jeniffer Hernandez on 09-20-2024 Lymphocytes/100 WBC Auto (Unsp spec) 26.3 % 19-41 [facility] BUN/creatinine ratioOrdered By: Jeniffer Hernandez on 09-20-2024 Urea nitrogen/Creatinine [Mass ratio] 18.5 mg/mg 10- [facility] Basic Metabolic Profile (BMP )on 09-20-2024 BUN/CRE 18.5 RATIO Normal - [facility] Comment on above: Performed By: #### L 500.2500, L100.0100, L300.8000, L501.9520 #### [facility] [address] [place], [address] Calcium [Mass/Vol] 9.5 mg/dL Normal 7.6-11.0 [facility] Comment on above: Performed By: #### L 500.2500, L100.0100, L300.8000, L501.9520 #### [facility] [address] [place], [address] Chloride [Moles/Vol] 101 mmol/L Normal 98-108 [facility] Comment on above: Performed By: #### L 500.2500, L100.0100, L300.8000, L501.9520 #### [facility] [address] [place], [address] CO2 [Moles/Vol] 27.0 mmol/L Normal 21.0-32.0 [facility] Comment on above: Performed By: #### L 500.2500, L100.0100, L300.8000, L501.9520 #### [facility] [address] [place], [address] Creatinine [Mass/Vol] 0.70 mg/dL Normal 0.70-1.20 [facility] Comment on above: Performed By: #### L 500.2500, L100.0100, L300.8000, L501.9520 #### [facility] [address] [place], [address] ECRCL 171.43 ml/min Normal 50-250 [facility] Comment on above: Performed By: #### L 500.2500, L100.0100, L300.8000, L501.9520 #### [facility] [address] [place], [address] GAP 11 Normal 5-15 [facility] Comment on above: Performed By: #### L 500.2500, L100.0100, L300.8000, L501.9520 #### [facility] [address] [place], [address] GFR/1.73 sq M.predicted among non-blacks MDRD (S/P/Bld) [Vol rate/Area] 125 mL/min/{1.73_m2} Normal >60 [facility] Comment on above: Result Comment: mL/m in/1.73m2 CKD-EPI Creatinine Equation (2020) Performed By: #### L 500.2500, L100.0100, L300.8000, L501.9520 #### [facility] [address] [place], [address] Glucose [Mass/Vol] 131 mg/dL High 70-99 [facility] Comment on above: Performed By: #### L 500.2500, L100.0100, L300.8000, L501.9520 #### [facility] [address] [place], [address] Potassium [Moles/Vol] 3.8 mmol/L Normal 3.3-5.1 [facility] Comment on above: Performed By: #### L 500.2500, L100.0100, L300.8000, L501.9520 #### [facility] [address] [place], [address] Sodium [Moles/Vol] 139 mmol/L Normal 133-145 [facility] Comment on above: Performed By: #### L 500.2500, L100.0100, L300.8000, L501.9520 #### [facility] [address] [place], [address] Urea nitrogen [Mass/Vol] 13 mg/dL Normal 4-19 [facility] Comment on above: Performed By: #### L 500.2500, L100.0100, L300.8000, L501.9520 #### [facility] [address] [place], [address] Basophil percentageOrdered B y: Remus Ungur on 09-20-2024 Basophils/100 WBC (Bld) 0.5 % 0-1 [facility] CBC W/Diff, Automatedon Absolute Lymph 3.44 X10 3/uL Normal 0.83-4.51 [facility] Comment on above: Performed By: #### L 500.2500, L100.0100, L300.8000, L501.9520 #### [facility] [address] [place], [address] Absolute Neut 8.5 X10 3/uL High 2.0-7.7 [facility] Comment on above: Performed By: #### L 500.2500, L100.0100, L300.8000, L501.9520 #### [facility] [address] [place], [address] Basophils/100 WBC (Bld) 0.5 % Normal 0-1 [facility] Comment on above: Performed By: #### L 500.2500, L100.0100, L300.8000, L501.9520 #### [facility] [address] [place], [address] Eosinophils/100 WBC (Bld) 0.6 % Normal 0-5 [facility] Comment on above: Performed By: #### L 500.2500, L100.0100, L300.8000, L501.9520 #### [facility] [address] [place], [address] Erythrocyte distribution width (RBC) [Ratio] 12.5 % Normal 11.6-14.6 [facility] Comment on above: Performed By: #### L 500.2500, L100.0100, L300.8000, L501.9520 #### [facility] [address] [place], [address] Hematocrit (Bld) [Volume fraction] 41.0 % Normal 37-47 [facility] Comment on above: Performed By: #### L 500.2500, L100.0100, L300.8000, L501.9520 #### [facility] [address] [place], [address] Hemoglobin (Bld) [Mass/Vol] 13.8 g/dL Normal 12.0-15.0 [facility] Comment on above: Performed By: #### L 500.2500, L100.0100, L300.8000, L501.9520 #### [facility] [address] [place], [address] IG% 0.400 Normal 0.0-0.9 [facility] Comment on above: Result Comment: IG% - Immature Granulocytes (promyelocytes, myelocytes and metamyelocytes) > 1% indicates that a LEFT SHIFT is Present. Performed By: #### L 500.2500, L100.0100, L300.8000, L501.9520 #### [facility] [address] [place], [address] Lymphocytes/100 WBC (Bld) 26.3 % Normal 19-41 [facility] Comment on above: Performed By: #### L 500.2500, L100.0100, L300.8000, L501.9520 #### [facility] [address] [place], [address] MCH (RBC) [Entitic mass] 30.7 pg Normal 27.0-32.0 [facility] Comment on above: Performed By: #### L 500.2500, L100.0100, L300.8000, L501.9520 #### [facility] [address] [place], [address] MCHC (RBC) [Mass/Vol] 33.7 g/dL Normal 32-36 [facility] Comment on above: Performed By: #### L 500.2500, L100.0100, L300.8000, L501.9520 #### [facility] [address] [place], [address] MCV (RBC) [Entitic vol] 91.1 fL Normal 81-99 [facility] Comment on above: Performed By: #### L 500.2500, L100.0100, L300.8000, L501.9520 #### [facility] [address] [place], [address] Monocytes/100 WBC (Bld) 7.6 % Normal 0-10 [facility] Comment on above: Performed By: #### L 500.2500, L100.0100, L300.8000, L501.9520 #### [facility] [address] [place], [address] Neutrophils/100 WBC (Bld) 64.6 % Normal 47-70 [facility] Comment on above: Performed By: #### L 500.2500, L100.0100, L300.8000, L501.9520 #### [facility] [address] [place], [address] Nucleated RBC (Bld) [#/Vol] 0 10*3/uL Normal 0-5 [facility] Comment on above: Performed By: #### L 500.2500, L100.0100, L300.8000, L501.9520 #### [facility] [address] [place], [address] Platelet mean volume (Bld) [Entitic vol] 11.0 fL Normal 6.2-12.0 [facility] Comment on above: Performed By: #### L 500.2500, L100.0100, L300.8000, L501.9520 #### [facility] [address] [place], [address] Platelets (Bld) [#/Vol] 281 10*3/uL Normal 150-450 [facility] Comment on above: Performed By: #### L 500.2500, L100.0100, L300.8000, L501.9520 #### [facility] [address] [place], [address] RBC (Bld) [#/Vol] 4.50 10*6/uL Normal 4.2-5.4 [facility] Comment on above: Performed By: #### L 500.2500, L100.0100, L300.8000, L501.9520 #### [facility] [address] [place], [address] RDW SD 41.1 fl Normal 35.1-43.9 [facility] Comment on above: Performed By: #### L 500.2500, L100.0100, L300.8000, L501.9520 #### [facility] [address] [place], [address] WBC (Bld) [#/Vol] 13.1 10*3/uL High 4.4-11.0 [facility] Comment on above: Performed By: #### L 500.2500, L100.0100, L300.8000, L501.9520 #### [facility] [address] [place], [address] Carbon dioxide, total [Moles /volume] in Central venous bloodOrdered By: Jeniffer Hernandez on 09-20-2024 CO2 [Moles/Vol] 27.0 mmol/L 21.0-32.0 [facility] Chloride assayOrdered By: Jahaira Hernandez on 09-20-2024 Chloride [Moles/Vol] 101 mmol/L 98-108 [facility] D-Dimer Quantitative (DVT/PE )on 09-20-2024 D-DIMER QUANT < 0.27 Low 0.27-0.49 [facility] Comment on above: Result Comment: NORM AL D-Dimer level (<0.50) indicates no DVT or PE. Performed By: #### L 500.2500, L100.0100, L300.8000, L501.9520 ####[facility] [address] [facility] [place], [address] Emergency Department Summary on 09-20-2024 Emergency Department Summary [facility] Medical Records Department [address] [place] [address] Emergency Department Summary 09/20/24 MR#: [id number] Acct: [id number] Name: HILLARY VOSS Rep #: [id number] : 2000 24 From: Jeniffer Hernandez DO PCP: Pietro Ramos Michael LENS AND FRAMES PRESCRIPTION CLERK-C Status:DEP ER Location: ED HPI History of [...] pain. She denies recent travel or surgery. [facility] Medical History no medical history Home Medications [...] on exam. (more content not included)... Normal [facility] Eosinophil percentageOrdered By: Jeniffer Hernandez on 09-20-2024 Eosinophils/100 WBC (Bld) 0.6 % 0-5 [facility] Erythrocyte distribution wid th ratioOrdered By: Jeniffer Hernandez on 09-20-2024 Erythrocyte distribution width (RBC) [Ratio] 12.5 % 11.6-14.6 [facility] Erythrocyte distribution wid th standard deviationOrdered By: Jeniffer Hernandez on 09-20-2024 Erythrocyte distribution width (RBC) [Ratio] 41.1 fl 35.1-43.9 [facility] Glomerular filtration rate ( GFR) estimation/1.73 sq m using serum, plasma, or whole bOrdered By: Jeniffer Hernandez on 09-20-2024 GFR/1.73 sq M.predicted among non-blacks MDRD (S/P/Bld) [Vol rate/Area] 125 mL/min/{1.73_m2} >60 [facility] Comment on above: mL/min/1.73m2 CKD-EP I Creatinine Equation (2020) Hematocrit Auto (Bld) [Volum e fraction]Ordered By: Jeniffer Hernandez on 09-20-2024 Hematocrit (Bld) [Volume fraction] 41.0 % 37-47 [facility] Hemoglobin measurementOrdere d By: Jeniffer Hernandez on 09-20-2024 Hemoglobin (Bld) [Mass/Vol] 13.8 g/dL 12.0-15.0 [facility] Immature granulocytes/100 WB C Auto (Bld)Ordered By: Jeniffer Hernandez on 09-20-2024 Immature granulocytes/100 WBC (Bld) 0.400 % 0.0-0.9 [facility] Comment on above: IG% - Immature Granu locytes (promyelocytes, myelocytes and metamyelocytes) > 1% indicates that a LEFT SHIFT is Present. Influenza virus A and B and SARS-CoV-2 (COVID-19) and Respiratory syncytial virus RNAOrdered By: Jeniffer Hernandez on 09-20-2024 SARS-CoV-2 (COVID-19) RNA ROYCE+probe Ql (Unsp spec) [facility] M100.678on 09-20-2024 M100.678 Pending SARS-CoV-2 (COVID 19) Negative INFLUENZA A Negative INFLUENZA B Negative RSV PCR Negative Normal [facility] Comment on above: Performed By: #### M 100.678 #### [facility] [address] [place] [address], [address] MCV (mean corpuscular volume ) determinationOrdered By: Jeniffer Hernandez on 09-20-2024 MCV (RBC) [Entitic vol] 91.1 fL 81-99 [facility] Mean corpuscular hemoglobin (MCH) determinationOrdered By: Jeniffer Hernandez on 09-20-2024 MCH (RBC) [Entitic mass] 30.7 pg 27.0-32.0 [facility] Mean corpuscular hemoglobin concentration (MCHC) determinationOrdered By: Jeniffer Hernandez on 09-20-2024 MCHC (RBC) [Mass/Vol] 33.7 g/dL 32-36 [facility] Mean platelet volume determi nationOrdered By: Jeniffer Hernandez on 09-20-2024 Platelet mean volume (Bld) [Entitic vol] 11.0 fL 6.2-12.0 [facility] Monocyte percentageOrdered B y: Jeniffer Hernandez on 05-07-2025 Monocytes/100 WBC (Bld) 7.6 % 0-10 [facility] Neutrophil percentageOrdered By: Jeniffer Hernandez on 09-20-2024 Neutrophils/100 WBC (Bld) 64.6 % 47-70 [facility] Nucleated red blood cell per centageOrdered By: Jeniffer Hernandez on 09-20-2024 Nucleated RBC/100 WBC (Bld) [Ratio] 0 % 0-5 [facility] Platelet countOrdered By: Jahaira Hernandez on 09-20-2024 Platelets (Bld) [#/Vol] 281 10*3/uL 150-450 [facility] Potassium measurement (mass/ volume)Ordered By: Jeniffer Hernandez on 09-20-2024 Potassium (Unsp spec) [Mass/Vol] 3.8 mmol/L 3.3-5.1 [facility] RBC Auto (Bld) [#/Vol]Ordere d By: Jeniffer Hernandez on 09-20-2024 RBC (Bld) [#/Vol] 4.50 10*6/uL 4.2-5.4 [facility] Serum creatinine measurement (mass/volume)Ordered By: Jeniffer Hernandez on 09-20-2024 Creatinine [Mass/Vol] 0.70 mg/dL 0.70-1.20 [facility] Serum glucose measurement (m ass/volume)Ordered By: Jeniffer Hernandez on 09-20-2024 Glucose [Mass/Vol] 131 mg/dL High 70-99 [facility] Serum or plasma calcium annika urement (mass/volume)Ordered By: Jeniffer Hernandez on 09-20-2024 Calcium [Mass/Vol] 9.5 mg/dL 7.6-11.0 [facility] Serum or plasma urea nitroge n measurement (mass/volume)Ordered By: Jeniffer Hernandez on 09-20-2024 Urea nitrogen [Mass/Vol] 13 mg/dL 4-19 [facility] Sodium levelOrdered By: Maria Del Rosario Hernandez on 09-20-2024 Sodium [Moles/Vol] 139 mmol/L 133-145 [facility] Soft Tissue Neck WITH Contra ston 09-20-2024 Soft Tissue Neck WITH Contrast [facility] Imaging Services [address] [place] [address] Soft Tissue Neck WITH Contrast MR#: [id number] Acct: [id number] Name: HILLARY VOSS Rep #: [id number] : 2000 F 24 From: Kevin virk MD PCP: Pietro Ramos Michael LENS AND [employer]AMES PRESCRIPTION CLERK-C Status: REG ER Study: Soft Tissue Neck WITH Contrast Date of Exam: 0 09/20/24 Exam# [id number] Ordering Dr: Jeniffer Hernandez DO PROCEDURE: SOFT [...] Location: [facility] CC: Dr. Jeniffer Hernandez, DO; Nichellekareem [facility] MAXIME Ramos Divorce Mediator: Signed Normal [facility] TSH DL <= 0.005 mIU/L QnOrde red By: Jeniffer Hernandez on 09-20-2024 TSH Qn 1.830 uIU/mL 0.300-4.200 [facility] Throat specimen bacteria marielos ntification by cultureOrdered By: Jeniffer Hernandez on 09-20-2024 Bacteria identified Cx Nom (Throat) Staphylococcus aureus Abnormal [facility] Thyroid Stim Hormone (TSH)on 09-20-2024 TSH 1.830 uIU/mL Normal 0.300-4.200 [facility] Comment on above: Performed By: #### L 500.2500, L100.0100, L300.8000, L501.9520 #### [facility] [address] [place], [address] White blood cell (WBC) count Ordered By: Jeniffer Hernandez on 09-20-2024 WBC (Bld) [#/Vol] 13.1 10*3/uL High 4.4-11.0 [facility] Absolute lymphocyte countOrd ered By: Pietro Ramos on 09-12-2024 Lymphocytes Auto (Unsp spec) [#/Vol] 4.39 10*3/uL 0.83-4.51 [facility] Absolute neutrophil countOrd ered By: [facility] on 09-12-2024 Neutrophils (Bld) [#/Vol] 5.7 10*3/uL 2.0-7.7 [facility] Anion gap in Serum or Plasma Ordered By: Pietro Ramos on 09-12-2024 Anion gap [Moles/Vol] 12 mmol/L 5-15 [facility] Automated lymphocyte count a s percentage of total leukocytesOrdered By: Pietro Ramos on 09-12-2024 Lymphocytes/100 WBC Auto (Unsp spec) 39.0 % 19-41 [facility] BUN/creatinine ratioOrdered By: Pietro Ramos on 09-12-2024 Urea nitrogen/Creatinine [Mass ratio] 20.2 mg/mg High 10-20 [facility] Basophil percentageOrdered B y: Zeindio Beam on 09-12-2024 Basophils/100 WBC (Bld) 0.6 % 0-1 [facility] Bilirubin, totalOrdered By: Pietro Ramos on 09-12-2024 Bilirubin [Mass/Vol] 0.25 mg/dL Normal 0.00-1.30 [facility] Comment on above: Performed By: #### L 506.1001, L500.4050, L100.0100, L500.4100, L503.0106, L501.9520 ####[facility] [address] [place], [address] Blood manual differential co mment interpretation (narrative result)Ordered By: Pietro Ramos on 09-12-2024 Manual differential comment Roland (Bld) [Interp] SCANNED [facility] CBC W/Diff, Automatedon 04- REACTIVE LYMPH RARE Normal [facility] Comment on above: Performed By: #### L 506.1001, L500.4050, L100.0100, L500.4100, L503.0106, L501.9520 ####[facility] [address] [place], [address] SMEAR COMMENT SCANNED Normal [facility] Comment on above: Performed By: #### L 506.1001, L500.4050, L100.0100, L500.4100, L503.0106, L501.9520 ####[facility] [address] [place], [address] Calculated very low density lipoprotein (VLDL) cholesterol measurementOrdered By: Pietro Ramos on 09-12-2024 Calculated very low density lipoprotein (VLDL) cholesterol measurement 25 mg/dL 5-40 [facility] Carbon dioxide, total [Moles /volume] in Central venous bloodOrdered By: Pietro Ramos on 09-12-2024 CO2 [Moles/Vol] 24.7 mmol/L Normal 21.0-32.0 [facility] Comment on above: Performed By: #### L 506.1001, L500.4050, L100.0100, L500.4100, L503.0106, L501.9520 ####[facility] [address] [place], [address] Chloride assayOrdered By: Satya Ramos on 09-12-2024 Chloride [Moles/Vol] 101 mmol/L Normal 98-108 [facility] Comment on above: Performed By: #### L 506.1001, L500.4050, L100.0100, L500.4100, L503.0106, L501.9520 ####[facility] [address] [place], [place], [id number] Comprehensive Metabolic Prof ilon 09-12-2024 ALK PHOS 86 U/L Normal 35-104 [facility] Comment on above: Performed By: #### L 506.1001, L500.4050, L100.0100, L500.4100, L503.0106, L501.9520 ####[facility] [address] [place], [place], [address] BUN/CRE 20.2 RATIO High 10-20 [facility] Comment on above: Performed By: #### L 506.1001, L500.4050, L100.0100, L500.4100, L503.0106, L501.9520 ####[facility] [address] [place], [address] GAP 12 Normal 5-15 [facility] Comment on above: Performed By: #### L 506.1001, L500.4050, L100.0100, L500.4100, L503.0106, L501.9520 ####[facility] [address] [place], [place], [phone] Potassium [Moles/Vol] 4.2 mmol/L Normal 3.3-5.1 [facility] Comment on above: Performed By: #### L 506.1001, L500.4050, L100.0100, L500.4100, L503.0106, L501.9520 ####[facility] [address] [place], [place], [phone] T PROT 7.8 g/dL Normal 5.9-8.4 [facility] Comment on above: Performed By: #### L 506.1001, L500.4050, L100.0100, L500.4100, L503.0106, L501.9520 ####[facility] [address] [place], [place], [phone] Comprehensive Metabolic Prof ilOrdered By: Pietro Ramos on 09-12-2024 AST [Catalytic activity/Vol] 24 U/L Normal <=31 [facility] Comment on above: Performed By: #### L 506.1001, L500.4050, L100.0100, L500.4100, L503.0106, L501.9520 ####[facility] [address] [place], [place], [phone] Eosinophil percentageOrdered By: Pietro Ramos on 09-12-2024 Eosinophils/100 WBC (Bld) 0.9 % 0-5 [facility] Erythrocyte distribution wid th ratioOrdered By: Pietro Beam on 09-12-2024 Erythrocyte distribution width (RBC) [Ratio] 12.4 % 11.6-14.6 [facility] Erythrocyte distribution wid th standard deviationOrdered By: Pietro Beam on 09-12-2024 Erythrocyte distribution width (RBC) [Ratio] 41.6 fl 35.1-43.9 [facility] Glomerular filtration rate ( GFR) estimation/1.73 sq m using serum, plasma, or whole bOrdered By: Pietro Ramos on 09-12-2024 GFR/1.73 sq M.predicted among non-blacks MDRD (S/P/Bld) [Vol rate/Area] 130 mL/min/{1.73_m2} Normal >60 [facility] Comment on above: mL/min/1.73m2 CKD-EP I Creatinine Equation (2020) Result Comment: mL/m in/1.73m2 CKD-EPI Creatinine Equation (2020) Performed By: #### L 506.1001, L500.4050, L100.0100, L500.4100, L503.0106, L501.9520 ####[facility] [address] [place], [address] Hematocrit Auto (Bld) [Volum e fraction]Ordered By: Pietro Ramos on 09-12-2024 Hematocrit (Bld) [Volume fraction] 41.7 % 37-47 [facility] Hemoglobin measurementOrdere d By: Sarahn Beam on 09-12-2024 Hemoglobin (Bld) [Mass/Vol] 14.0 g/dL 12.0-15.0 [facility] Immature granulocytes/100 WB C Auto (Bld)Ordered By: [facility] Be[facility] on 09-12-2024 Immature granulocytes/100 WBC (Bld) 0.200 % 0.0-0.9 [facility] Comment on above: IG% - Immature Granu locytes (promyelocytes, myelocytes and metamyelocytes) > 1% indicates that a LEFT SHIFT is Present. LDL calc ser/plasOrdered By: Pietro Ramos on 09-12-2024 Cholesterol in LDL [Mass/Vol] 85 mg/dL Normal [facility]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 [facility] 08-30-2024 01:13-0400 SaO2% (BldA) [Mass fraction] 98 % Dr. Walter Mijares DO Work Phone: [facility] 08-30-2024 01:13-0400 Systolic blood pressure 150 mm[Hg] Dr. Walter Mijares DO Work Phone: [facility] 08-29-2024 23:41-0400 Body height 160.[address] Walter Mijares DO Work Phone: [facility] 08-29-2024 23:41-0400 Body mass index (BMI) [Ratio] 53.4 kg/m2 Dr. Walter Mijares DO Work Phone: [facility] 08-29-2024 23:41-0400 Body weight 136.[address] Walter Mijares DO Work Phone: [facility] 11-23-2022 17:34-0400 Body temperature 97.9 [degF] More Amirah MANAGER NICU.AIRCRAFT LOG CLERK Work Phone: [facility] 11-23-2022 17:34-0400 Body weight 130.73 kg More Amirah MANAGER NICU.AIRCRAFT LOG CLERK Work Phone: [facility] 11-23-2022 17:34-0400 Diastolic blood pressure 82 mm[Hg] More Amirah MANAGER NICU.AIRCRAFT LOG CLERK Work Phone: [facility] 11-23-2022 17:34-0400 Heart rate 91 /min More Amirah MANAGER NICU.AIRCRAFT LOG CLERK Work Phone: [facility] 11-23-2022 17:34-0400 Respiratory rate 20 /min More Newtonk MANAGER NICU.AIRCRAFT LOG CLERK Work Phone: [facility] 11-23-2022 17:34-0400 SaO2% (BldA) [Mass fraction] 96 % More Newtonk MANAGER NICU.AIRCRAFT LOG CLERK Work Phone: [facility] 11-23-2022 17:34-0400 Systolic blood pressure 138 mm[Hg] More Newtonk MANAGER NICU.AIRCRAFT LOG CLERK Work Phone: [facility] Encounters Encounter Date Encounter Type Care Provider Facility Start: 03-29-2025 ambulatory [facility] Facility :[facility] Start: 03-28-2025 ambulatory [facility] Facility :[facility] Start: 03-23-2025 End: 03-23-2025 ambulatory [facility] [place] Start: 02-23-2025 End: 02-23-2025 Emergency department patient visit Dr. Gavin Hightower DO -Emergency Department Work Phone: Start: 02-14-2025 End: 02-14-2025 Patient encounter procedure [facility] LENS AND FRAMES PRESCRIPTION CLERK-C -[facility] [place] Work Phone: Start: 02-14-2025 End: 02-14-2025 ambulatory [facility] Facility:[facility] Start: 02-11-2025 End: 02-11-2025 Emergency department patient visit Pietro Ramos LENS AND FRAMES PRESCRIPTION CLERK-C Work Phone: -Emergency Department Work Phone: Start: 12-06-2024 Encounter for genera l adult medical examination without abnormal findings Augustin Patel [facility] Start: 11-29-2024 End: 11-29-[address] Walter Mijares DO Work Phone: -Sleep Lab Start: 11-29-2024 End: 11-29-[address] Augustin Patel DO -Sleep Lab Work Phone: Start: 11-29-2024 End: 11-29-2024 ambulatory Augustin Patel Facility:[facility] Start: 11-06-2024 End: 11-06-[address] Walter Mijares DO Work Phone: -Sleep Lab Start: 11-06-2024 End: 11-06-[address] Augustin Patel DO -Sleep Lab Work Phone: Start: 11-06-2024 End: 11-06-2024 ambulatory Augustin Patel Facility:[facility] Start: 10-11-2024 ambulatory SAMANTHA FLANAGANJULIA [facility] Start: 10-03-2024 End: 10-03-2024 Patient encounter procedure Pietro Keith Beam -Sleep Lab Work Phone: Start: 10-03-2024 End: 10-03-2024 ambulatory Zebulun Z Beam Facility:[facility] Start: 09-25-2024 End: 09-25-2024 Emergency department patient visit Dr. Walter Mijares DO Work Phone: -Emergency Department Work Phone: Start: 09-20-2024 End: 09-20-2024 Emergency department patient visit Dr. Walter Mijares DO Work Phone: -Emergency Department Work Phone: Start: 09-12-2024 End: 09-12-2024 Patient encounter procedure Zebujoyn Beam LENS AND FRAMES PRESCRIPTION CLERK-C -Laboratory, [facility] Start: 09-12-2024 End: 09-12-2024 ambulatory Zebulun Beam [facility] Facility:[facility] Start: 09-06-2024 End: 09-06-2024 Emergency department patient [...] 08-30-2024 Emergency department patient visit Dr. Walter Mijares DO Work Phone: -Emergency Department Work Phone: Start: 11-23-2022 End: 11-23-[address] [facility] Facility:[facility] Start: 11-23-2022 End: 11-23-2022 Subsequent hospital visit by physician Xr [facility] [place] Work Phone: Radiology Comment on above: Acute left ankle rosalino n [M25.572] Start: 11-23-2022 End: 11-23-2022 Patient encounter procedure More Macario MANAGER NICU.AIRCRAFT LOG CLERK Work Phone: [facility] Comment on above: Acute left ankle rosalino n (Primary Dx) Start: 05-13-2022 Telephone encounter More Newtonk MANAGER NICU.AIRCRAFT LOG CLERK Work Phone: [facility] Comment on above: Results Start: 05-12-2022 End: 05-12-[address] [facility] Facility:[facility] Procedures Date Procedure Procedure Detail Performing Clinician Start: 02-23-2025 Urnls dip stick/tabl et reagent auto microscopy Zebulun Beam LENS AND FRAMES PRESCRIPTION CLERK-C Work Phone: Start: 02-23-2025 CT of thorax, abdome n and pelvis with contrast Zebulun Beam LENS AND FRAMES PRESCRIPTION CLERK-C Work Phone: Start: 02-23-2025 CT cervical spine wi thout contrast Zebulun Beam LENS AND FRAMES PRESCRIPTION CLERK-C Work Phone: Start: 02-23-2025 CT of head without contrast Zebulun Beam LENS AND FRAMES PRESCRIPTION CLERK-C Work Phone: Start: 02-23-2025 Estimated creatinine clearance Zebulun Beam LENS AND FRAMES PRESCRIPTION CLERK-C Work Phone: Start: 02-14-2025 Radiologic exam ches t 2 views Zebulun Beam LENS AND FRAMES PRESCRIPTION CLERK-C Work Phone: Start: 02-11-2025 SARS-CoV-2, Influenz a & RSV (PCR) Zebulun Beam LENS AND FRAMES PRESCRIPTION CLERK-C Work Phone: Start: 09-20-2024 CT of soft [...] ankle complete minimum 3 views More Macario APRN.AIRCRAFT LOG CLERK Work Phone: Plan of Treatment Date Care Activity Detail Author Start: 02-23-2025 [facility] Start: 02-11-2025 [facility] Start: 02-11-2025 [facility] Start: 12-14-2024 Urine microalbumin profile [facility] Start: 09-25-2024 [facility] Start: 09-20-2024 Bacteria identification test Throat Culture [facility] Start: 09-20-2024 Throat culture Throat Culture [facility] Start: 09-06-2024 [facility] Start: 09-03-2024 [facility] Start: 08-31-2024 [facility] Start: 08-30-2024 [facility] Start: 01-16-2024 Covid-19 Vaccine ( season) Covid-19 Vaccine ( season) [facility] Start: 01-16-2024 Influenza vaccination Influenza Vaccine (#1) [facility] Start: 01-15-2023 Influenza vaccination INFLUENZA (#1) [facility] Start: 05-17-2022 DEPRESSION ASSESSMENT DEPRESSION ASSESSMENT [facility] Start: 2022 PAP TESTING PAP TESTING [facility] Start: 2022 Screening for malignant neoplasm of cervix Cervical Cancer Screening [facility] Start: 01-15-2022 Influenza vaccination INFLUENZA (#1) [facility] Start: 2019 Anxiety Screening Anxiety Screening [facility] Start: 2019 CHLAMYDIA SCREENING (18-24) CHLAMYDIA SCREENING (18-24) [facility] Start: 2019 Depression Screening Depression Screening [facility] Start: 2019 GC (GONORRHEA) SCREENING (18-24) GC (GONORRHEA) SCREENING (18-24) [facility] Start: 2019 HEPATITIS C SCREENING HEPATITIS C SCREENING [facility] Start: 2019 Hepatitis C screening Hepatitis C Screening [facility] Start: 2019 HIV SCREENING HIV SCREENING [facility] Start: 2019 HIV screening HIV Screening [facility] Start: 2019 Screening for Chlamydia trachomatis Chlamydia Screening (18-24) [facility] Start: 2017 Meningococcal B Vaccine: Consider Based On Risk (1 of 2 - Patient Seeks Protection) Meningococcal B Vaccine: Consider Based On Risk (1 of 2 - Patient Seeks Protection) [facility] Start: 2017 MENINGOCOCCAL B: Consider based on risk (1 of 2 - Patient Seeks Protection) MENINGOCOCCAL B: Consider based on risk (1 of 2 - Patient Seeks Protection) [facility] Start: 02-21-2016 HPV Vaccine (1 - 3-dose series) HPV Vaccine (1 - 3-dose series) [facility] Start: 2015 PEDS TO ADULT TRANSITION ANNUAL ASSESSMENT PEDS TO ADULT TRANSITION ANNUAL ASSESSMENT [facility] Start: 2013 PEDS TO ADULT TRANSITION INITIAL DISCUSSION PEDS TO ADULT TRANSITION INITIAL DISCUSSION [facility] Start: 02-21-2012 HPV VACCINE (1 - 2-dose series) HPV VACCINE (1 - 2-dose series) [facility] Start: 2011 MENINGOCOCCAL B: Consider based on risk (1 of 2 - Risk Bexsero 2-dose series) MENINGOCOCCAL B: Consider based on risk (1 of 2 - Risk Bexsero 2-dose series) [facility] Start: 2010 HPV VACCINE (1 - 2-dose series) HPV VACCINE (1 - 2-dose series) [facility] Start: 2001 COVID-19 VACCINE (#1) COVID-19 VACCINE (#1) [facility] Bacteria identified in Throat by Culture [facility] Patient Education [facility] Work Phone: Patient referral [facility] Work Phone: Immunizations Immunization Date Immunization Notes Care Provider Sam staples 12-14-2014 tetanus toxoid, redu re diphtheria toxoid, and acellular pertussis vaccine, adsorbed Moreirina Macario MANAGER NICU.[facility] Work Phone: [facility] Work Phone: 02-22-2009 influenza virus vaccine, live, attenuated, for intranasal use More Macario APRN.[facility] Work Phone: [facility] Work Phone: 02-22-2009 influenza virus vaccine, unspecified formulation X[facility] [place] Work Phone: [facility] 01-06-2007 diphtheria, tetanus toxoids and acellular pertussis vaccine More Macario MANAGER NICU.[facility] Work Phone: [facility] Work Phone: 01-06-2007 measles, mumps and rubella virus vaccine More Amirah MANAGER NICU.[facility] Work Phone: [facility] Work Phone: 01-06-2007 poliovirus vaccine, inactivated More Macario MANAGER NICU.AIRCRAFT LOG CLERK Work Phone: [facility] Work Phone: 08-21-2002 pneumococcal conjuga te vaccine, 7 valent More Macario MANAGER NICU.AIRCRAFT LOG CLERK Work Phone: [facility] Work Phone: 06-03-2002 diphtheria, tetanus toxoids and acellular pertussis vaccine More Macario MANAGER NICU.AIRCRAFT LOG CLERK Work Phone: [facility] Work Phone: 06-03-2002 haemophilus influenz ae type b vaccine, HbOC conjugate More Macario MANAGER NICU.[facility] Work Phone: [facility] Work Phone: 06-03-2002 varicella virus vaccine Joe Macario APRN.[facility] Work Phone: [facility] Work Phone: 2002 measles, mumps and rubella virus vaccine More Macario MANAGER NICU.AIRCRAFT LOG CLERK Work Phone: [facility] Work Phone: 2001 haemophilus influenz ae type b vaccine, HbOC conjugate More Macario MANAGER NICU.[facility] Work Phone: [facility] Work Phone: 2001 hepatitis B vaccine, pediatric or pediatric/adolescent dosage More Macario MANAGER NICU.AIRCRAFT LOG CLERK Work Phone: [facility] Work Phone: 2001 poliovirus vaccine, inactivated More Macario MANAGER NICU.AIRCRAFT LOG CLERK Work Phone: [facility] Work Phone: 2001 diphtheria, tetanus toxoids and acellular pertussis vaccine More Macario MANAGER NICU.AIRCRAFT LOG CLERK Work Phone: [facility] Work Phone: 2001 haemophilus influenz ae type b vaccine, HbOC conjugate More Macario MANAGER NICU.AIRCRAFT LOG CLERK Work Phone: [facility] Work Phone: 2001 pneumococcal conjuga te vaccine, 7 valent More Amirah MANAGER NICU.AIRCRAFT LOG CLERK Work Phone: [facility] Work Phone: 2001 diphtheria, tetanus toxoids and acellular pertussis vaccine More Amirah MANAGER NICU.AIRCRAFT LOG CLERK Work Phone: [facility] Work Phone: 2001 haemophilus influenz ae type b vaccine, HbOC conjugate More Amirah MANAGER NICU.AIRCRAFT LOG CLERK Work Phone: [facility] Work Phone: 2001 pneumococcal conjuga te vaccine, 7 valent More Amirah MANAGER NICU.[facility] Work Phone: [facility] Work Phone: 2001 poliovirus vaccine, inactivated More Amirah MANAGER NICU.AIRCRAFT LOG CLERK Work Phone: [facility] Work Phone: 2001 diphtheria, tetanus toxoids and acellular pertussis vaccine More Amirah MANAGER NICU.[facility] Work Phone: [facility] Work Phone: 2001 pneumococcal conjuga te vaccine, 7 valent More Amirah MANAGER NICU.[facility] Work Phone: [facility] Work Phone: 2001 poliovirus vaccine, inactivated More Amirah MANAGER NICU.AIRCRAFT LOG CLERK Work Phone: [facility] Work Phone: 2001 hepatitis B vaccine, pediatric or pediatric/adolescent dosage More Amirah MANAGER NICU.AIRCRAFT LOG CLERK Work Phone: [facility] Work Phone: 2001 hepatitis B vaccine, pediatric or pediatric/adolescent dosage More Amirah MANAGER NICU.AIRCRAFT LOG CLERK Work Phone: [facility] Work Phone: Payers Date Payer Category Payer Self-pay 2022 Medicaid [facility] [id number] 2022-[facility] [phone] [address] [place] [address] Medicaid [id number] 2022 Unknown [id number] 2001 Unknown [id number] Self-pay [id number] Unknown [id number] Unknown [id number] Unknown [id number] Unknown [id number] Unknown [id number] Unknown [id number] [id number] Unknown [id number] Unknown [id number] [id number] Unknown [id number] [id number] Unknown [id number] [id number] Unknown [id number] [id number] Unknown [id number] [id number] Unknown [id number] [id number] Unknown [id number] [id number] Unknown [id number] [id number] Unknown [id number] [id number] Unknown [id number] [id number] Social History Date Type Detail Facility Start: 05-12-2022 End: 02-23-2025 Tobacco smoking status NHIS Never smoked tobacco [facility] Start: 05-12-2022 Tobacco use and exposure Smokeless tobacco non-user [facility] Start: 05-12-2022 End: 11-23-2022 Alcohol intake Not Asked [facility] Start: 2000 Sex Assigned At Not on file [facility] Start: 11-23-2022 History of Social function [facility] Start: 11-23-2022 Tobacco use panel [facility] Start: 08-30-2024 End: 09-06-2024 Sex Female (finding) [facility] Start: 2000 Sex Assigned At Female W [facility] Mental Status Date Assessment Result Facility 09-25-2024 Cognitive function Level Of Cons ciousness Awake;Alert;Appropriate;Follow s Commands [facility] Work Phone: 09-06-2024 Cognitive function Level Of Cons ciousness Awake;Alert;Appropriate;Follow s Commands [facility] Work Phone: 08-31-2024 Cognitive function Voice/Name [facility] Work Phone: Clinical Notes 05-12-2022 to 02-23-2025 Note Date & Type Note Facility 02-23-2025 Discharge summary [facility] 02-23-2025 Radiology Diagnostic study note [facility] Imaging Services [address] [place] [address] CT Chest, Abd, Pel w/Contrast MR#: [id number] Acct: [id number] Name: HILLARY VOSS Rep #: [id number] : 2000 F 25 From: Omid Yancey MD PCP: MAXIME Ware Status: REG E R Study:CT Chest, Abd, Pel w/Contrast Date of E xam: 02/23/25 Exam# [id number] Ordering Dr: Patel Hightower DO PROCEDURE: CT [...] the chest, abdomen and pelvis. Reading Location: [facility] CC: MALLORIEC Anne Marie Munoz; Dr. Gavin Hightower DO ~ Divorce Mediator: Signed [facility] 02-23-2025 Radiology Diagnostic study note [facility] Imaging Services [address] [place] [address] Spine Cervical without Contras MR#: [id number] Acct: [id number] Name: HILLARY VOSS Rep #: [id number] : 2000 25 From: Omid Yancey MD PCP: MAXIME Ware Status: REG E R Study:Spine Cervical without Contras Date of Exam: 02/23/25 Exam# [id number] Ordering Dr: Patel Hightower DO PROCEDURE: SPINE [...] injury to the cervical spine. Reading Location: [facility] CC: MAXIME Munoz; Dr. Gavin Hightower, ~ Divorce Mediator: Signed [facility] 02-23-2025 Radiology Diagnostic study note [facility] Imaging Services [address] [place] [address] Brain/Head without Contrast MR#: [id number] Acct: [id number] Name: HILLARY VOSS Rep #: [id number] : 2000 F 25 From: Omid Yancey MD PCP: MAXIME Ware Status: REG E R Study:Brain/Head without Contrast Date of Exa m: 02/23/25 Exam# [id number] Ordering Dr: Patel Hightower DO PROCEDURE: BRAIN/HEAD [...] IMPRESSION: No acute intracranial abnormalities. Reading Location: [facility] CC: MAXIME Munoz; Dr. Gavin Hightower DO ~ Divorce Mediator: Signed [facility] 02-23-2025 Discharge summary Note Date/Time February 23, 2025 6:22pm [facility] Medical Records Department [address] [place] [address] Emergency Department Summary 02/23/25 MR#: [id number] Acct: [id number] Name: HILLARY VOSS Rep #:[id number] : [...] Patient denies any pain in her elbows. [facility] Medical History YADI (obstructive sleep apnea) Home [...] following commands knew that she was at [facility] the year is 2024 sensation grossly [...] a rate of 115 bpm with a ME interval 136. Patient ambulated well here in the emergency department without any difficulty. Discussed the results with the patient and family at bedside she is feeling better she like to go home. She is vies rotate Tylenol and ibuprofen dehppv-mge-aaatf for pain control. She was advised that [...] % (Auto) 63.0 Lymph % (Auto) 27.2 [place] % (Auto) 8.1 Eos % (Auto) 0.9 [...] Sl. Cloudy Urine pH 7.0 Ur Specific Raysal 1.010 Urine Protein 30 H Urine Glucose (UA) Normal Urine Ketones Negative Urine Occult Blood 250 H Urine Nitrite Negative Urine Bilirubin Negative Urine Urobilinogen Normal Ur Leukocyte Esterase Negative Radiography Diagnostic Testing: Clinical Impression(s) from Imaging Studies Brain CT 02/23/25 16:54 IMPRESSION: No acute intracranial abnormalities. Reading Location: [facility] Cervical Spine CT 02/23/25 16:54 IMPRESSION: No acute injury to the cervical spine. Reading Location: [facility] Chest/Abdomen/Pelvis CT 02/23/25 16:57 IMPRESSION: No acute injuries to the chest, abdomen and pelvis. Reading Location: [facility] Discharge Plan Triage Chief Complaint: Motor [...] next several days rotate Tylenol and ibuprofen lwiktl-cih-sqvzz when you do this you can take [...] otherwise follow-up with your doctor. Print Language: [place] Disposition Disposition: Home, Self Care What to do if you have Problems For any increased pain, shortness of breath, bleeding, nausea or vomiting, chestpain, or any unexpected problems, contact your Primary Care Provider. Call [facility] ([phone]) or report to the closest Emergency Room. Call 911 if necessary. 02/23/25 182 <Electronically signed by Gavin Hightower DO> Cosigner Signature (if applicable): CC: MAXIME Munoz ~ Signed [facility] Work Phone: [phone] 977-418709-28-2025 Discharge summary [facility] Medical Records Department [address] [place] [address] Emergency Department Summary 02/11/25 MR#: [id number] Acct: [id number] Name: HILLARY VOSS Rep #:[id number] : [...] been goingon for 1-2 weeks. Presents between 3849-0792 AM because we needto fix this according [...] for it. She also has taken no sxkf-dkc-jmvyzgr cold or flu medications for any ofthis. [...] thoughts Endocrine Endocrinology: Denies polydipsia or polyuria [facility] Medical History (Updated 02/11/25 @ 06:27 by [...] this she was amenable to it, but thenshe changed her mind anddecided to refuse the Decadron. The swab is negative. She is wondering if thiscould be allergies, certainly it could be or a viral infection. I discussed thelogic behind the steroids and she understands but declines, and states she wouldrather use xbsj-kdc-ygghyee Zyrtec andNyQuil or equivalent and use her CPAP as able. Discharge Plan Triage Chief Complaint: Shortness of Breath ED Provider: Conner Mckinnye Dx/Rx/DC Orders Clinical Impression: Nasal congestion with rhinorrhea, Difficulty with CPAP use Instructions: ED Allergic Rhinitis, ED URI, Viral, No Abx (Adult) Prescriptions: No Action NK Primary Care Provider: Anne Marie Munoz Referrals: Anne Marie Munoz, ZACKARY-C [Primary Care Provider, Family Practice] - 3-5 Days if not improving Activity Restrictions/Additional Instructions: Try using NyQuil or mcnp-gtj-zmgwmjk equivalent cold/flu medication at night before bed to help with the runny nose, and consider using Zyrtec or Aster or Claritin as these will be more likely to help if your nasal congestion is due toallergy. Print Language: [place] Disposition Disposition: Home, Self Care What to do if you have Problems For any increased pain, shortness of breath, bleeding, nausea or vomiting, chestpain, or any unexpected problems, contact your Primary Care Provider. Call [facility] ([phone]) or report tothe closest Emergency Room. Call 911 if necessary. 02/11/25626 Cosigner Signature (if applicable): CC: MAXIME Munoz ~ Signed [facility]05-07-2025 Radiology Diagnostic study note [facility] Imaging Services [address] [place] [address] Soft Tissue Neck WITH Contrast MR#: [id number] Acct: [id number] Name: HILLARY VOSS Rep #: [id number] : 2000 F 24 From: Evy Minor MD PCP: Pietro Ramos LENS AND FRAMES PRESCRIPTION CLERK-C Status: REG ER Study:Soft Tissue Neck WITH Contrast Date of Exam: 09/20/24 Exam# [id number] Ordering Dr: Jahaira Hernandez DO PROCEDURE: SOFT [...] nodes. Reading Location: [facility] CC: Dr. Jeniffer Hernandez DO; [facility] LENS AND FRAMES PRESCRIPTION CLERK-C Beam ~ Divorce Mediator: Signed [facility]04-20-2025 Discharge summary [facility] Medical Records Department [address] [place] [address] Emergency Department Summary 09/03/24 MR#: [id number] Acct: [id number] Name: HILLARY VOSS Rep #:[id number] : [...] similar symptoms: Yes Recent Illness/Hospitalization: Yes [facility] Home Medications ?Medication ?Instructions ?Recorded ?Last Taken [...] IMPRESSION: No acute intracranial finding. Reading Location: [facility] CT of the head reveals retention mucous [...] Referrals: Michelle Rodriguez MD [Med Staff - Purse Seining Hand] - 1 Week Care Physician,No Primary [Primary Care Provider] - Activity Restrictions/Additional Instructions: Call Dr. Rodriguez's office for follow-up for blood pressure, outpatient study forsleep apnea and postconcussive syndrome Print Language: [place] Disposition Disposition: Home, Self Care What to do if you have Problems For any increased pain, shortness of breath, bleeding, nausea or vomiting, chestpain, or any unexpected problems, contact your Primary Care Provider. Call [facility] ([phone]) or report tothe closest Emergency Room. Call 911 if necessary. 09/03/24 0824 Cosigner Signature (if applicable): CC: No Primary Care Physician ~ Signed [facility]04-20-2025 Radiology Diagnostic study note [facility] Imaging Services [address] [place] [address] Brain/Head without Contrast MR#: [id number] Acct: [id number] Name: HILLARY VOSS Rep #: [id number] : 2000 F 24 From: Stephanie Oliver MD PCP: Care Physician,No Primary Status: REG ER Study:Brain/Head without Contrast Date of Exa m: 09/03/24 Exam# [id number] Ordering Dr: Dena Buenrostro MD EXAM: BRAIN/HEAD [...] patent. Opacification of the bilateral maxillary sinuses, cgan-hxjmjkp-ixyy-right. The mastoid air cells are well-aerated. The orbits are unremarkable. No acute calvarial fracture or scalp hematoma. CT/Brain/Head without Contrast IMPRESSION: No acute intracranial finding. Reading Location: [facility] CC: Dr. Raul Buenrostro MD; No Primary Care Physician ~ Divorce Mediator: Signed [facility]04-17-2025 Discharge summary [facility] Medical Records Department [address] [place] [address] Emergency Department Summary 08/31/24 MR#: [id number] Acct: [id number] Name: HILLARY VOSS Rep #:[id number] : [...] noted Neuro Narrative: Normal coordination with normal bkmria-sf-mawa. No truncal ataxia. Normal uhdz-qg-cglx. Clear speech. Sensorium / Orientation: alert Motor [...] care doctor will give her referral to [facility]. Patient and mo ther are [...] Primary Care Provider: Care Physician,No Primary Referrals: [facility] [Outside] Care Physician,No Primary [Primary Care Provider] - Activity Restrictions/Additional Instructions: Make sure you are drinking plenty of fluids. Take Tylenol as needed at home forheadache and symptoms. If you develop multiple episodes of vomiting, vision changes, weakness on one side your body compared to the other or pass out pleasereturn to the emergency room. Print Language: [place] Disposition Disposition: Home, Self Care What to do if you have Problems For any increased pain, shortness of breath, bleeding, nausea or vomiting, chestpain, or any unexpected problems, contact your Primary Care Provider. Call [facility] ([phone]) or report tothe closest Emergency Room. Call 911 if necessary. 08/31/24 0320 Cosigner Signature (if applicable): CC: No Primary Care Physician ~ Signed [facility]04-16-2025 Radiology Diagnostic study note [facility] Imaging Services [address] [place] [address] Chest PA and Lateral MR#: [id number] Acct: [id number] Name: HILLARY VOSS Rep #: [id number] : 2000 F 24 From: Kim Aguilar MD PCP: Care Physician,No Primary Status: REG ER Study:Chest PA and Lateral Date of Exam: 08/30/24 Exam# [id number] Ordering Dr: Kay Mijares DO PROCEDURE: CHEST [...] evidence of an acute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
== END | disposition home or self-care (01) ==
LOC: SL 19:58
PROVIDERS: PCP Nurse Practitioner Family; Referring Provider Nurse Practitioner Family; Visit Provider Nurse Practitioner Family
DX: G47.33 Obstructive sleep apnea (adult) (pediatric) (principal)
CPT/HCPCS: 95811